=== PATIENT | female | born 1960 | race African-American/Black ===

== ENCOUNTER 2025-01-07 09:09 | Observation (INO) | payer OTHER, MEDICAID ==
[~2025-01-07] VITALS: Ht 160 cm; Wt 103.4 kg
[2025-01-07] VITALS (8 sets, daily range): BP systolic 123–146; BP diastolic 45–75; PULSE 81–88; RESP 12–20; TEMP 97.9–98.7; O2SAT 95–99
[~2025-01-07 09:09] MED LIST: ATEN-60 PO; IPRA0.064; PRO25I IM
--- NOTE | 2025-01-07 10:35 | ED.PDOC ---
History of Present Illness HPI Comments 64-year-old female presents to the ER in a wheelchair being pushed by daughter and with prior medical history of sciatica, hypertension: Surgical history of CABG and the chief complaint of shortness a breath. Patient reports on having shortness a breath upon ambulation associated with right hip pain which radiates down to the right lower extremity(foot numbness at this time) and dark black bowel movements. Denies any other symptoms at this time. Denies chills, fever, N/V/D, CP. No other associated symptoms, modifiers, recent injuries or sick contacts present at this time. Chief Complaint: Shortness of Breath Time Seen by MD: 10:30 Primary Care Provider: UTD Reviewed Notes: Nurses Notes, Medications, Allergies Allergies: Coded Allergies: Erythromycin (Verified Allergy, 06/04/13) Home Meds Reported Medications Promethazine Hcl (PHENERGAN INJECTION) 25 Mg/Ml Ij, 25 MG IM 06/04/13 Ipratropium [place] (Atrovent) 0.06 % Rhina, 0.06 % NA 06/04/13 Atenolol (Atenolol) 25 Mg Tab, 25 MG PO, TAB 06/04/13 Information Source: Patient, Relative (Child) Mode of Arrival: Ambulatory Severity: Moderate Timing: Came on: Suddenly Duration: Since onset Prehospital treatment: None Past Medical History PAST MEDICAL HISTORY: HTN Past Medical History (Other): Sciatica Surgical History: CABG PHARMACIST HELPER History: No Pertinent PHARMACIST HELPER History Family History Family History: Reviewed,noncontributory to illness, Unknown Social History Smoker: Unknown Alcohol: Unknown Drugs: Unknown Lives In: Home Constitutional: denies: chills, diaphoresis, fatigue, fever, malaise, sweats, weakness, others EENTM: denies: blurred vision, double vision, ear bleeding, ear discharge, ear drainage, ear pain, ear ringing, eye pain, eye redness, hearing loss, mouth pain, mouth swelling, nasal discharge, nose bleeding, nose congestion, nose pain, photophobia, tearing, throat pain, throat swelling, voice changes, others Respiratory: reports: shortness of breath; denies: cough, hemoptysis, orthopnea, SOB at rest, SOB with excertion, stridor, wheezing, others Cardiovascular: denies: chest pain, dizzy spells, diaphoresis, Dyspnea on exertion, edema, irregular heart beat, left arm pain, lightheadedness, palpitations, PND, syncope, others Gastrointestinal: reports: others (Dark stool); denies: abdomen distended, abdominal pain, blood streaked bowels, constipated, diarrhea, dysphagia, difficulty swallowing, hematemesis, melena, nausea, poor appetite, poor fluid intake, rectal bleeding, rectal pain, vomiting Genitourinary: denies: abnormal vagina bleeding, burning, dyspareunia, dysuria, flank pain, frequency, hematuria, incontinence, pain, , vagina discharge, urgency, others Neurological: denies: dizziness, fainting, headache, left sided numbness, left sided weakness, numbness, paresthesia, pre-existing deficit, right sided numbness, right sided weakness, seizure, speech problems, tingling, tremors, weakness, others Musculoskeletal: reports: others (In which radiates down the right lower e xtremity); denies: back pain, gout, joint pain, joint swelling, muscle pain, muscle stiffness, neck pain Integumetry: denies: bruises, change in color, change in hair/nails, dryness, laceration, lesions, lumps, rash, wounds, others Allergic/Immunocompromised: denies: Difficulty Healing, Frequent Infections, Hives, Itching, others Hematologic/Lymphatic: denies: anemia, blood clots, easy bleeding, easy bruising, swollen glands, others Endocrine: denies: excessive hunger, excessive sweating, excessive thirst, excessive urination, flushing, intolerance to cold, intolerance to heat, unexplained weight gain, unexplained weight loss, others Psychiatric: denies: anxiety, bipolar disorder, depression, hopeless, panic disorder, schizophrenia, sleepless, suicidal, others All Other Systems: Reviewed and Negative Physical Exam General Appearance: Moderate Distress, Normal HEENT: Normal ENT Inspection, Pharynx Normal, TMs Normal Neck: Full Range of Motion, Non-Tender, Normal, Normal Inspection Respiratory: Chest Non-Tender, No Accessory Muscle Use, Other (Coarse breath sounds) Cardiovascular: No Edema, No JVD, No Murmur, No Gallop, Normal Peripheral Pulses, Regular Rate/Rhythm Breast Exam: Deferred Gastrointestinal: No Organomegaly, Non Tender, No Pulsatile Mass, Normal Bowel Sounds, Soft Genitalia: Deferred Pelvic: Deferred Rectal: Deferred Extremities: No calf tenderness, Normal capillary refill, Normal inspection, Normal range of motion, Non-tender, No pedal edema Musculoskeletal : Apperance: Normal Neurologic: Alert, chief jailer II-XII nml as Tested, No Motor Deficits, Normal Affect, Normal Mood, No Sensory Deficits Cerebellar Function: NOT DONE Reflexes: NOT DONE Skin: Dry, Normal Color, Warm Peripheral Pulses: 3+ Radial (R), 3+ Radial (L) Lymphatic: No Adenopathy Was a procedure done? Was a procedure done?: No Differential Dx Considerations may include: CHF Electrolyte imbalance X-Ray, Labs, Meds, VS Vital Signs Date Time Temp Pulse Resp B/P (MAP) Pulse Ox O2 Delivery O2 Flow Rate FiO2 01/07/25 10:23 91 17 100 Room Air 01/07/25 10:23 98.7 91 17 139/62 (87) 100 98.7 01/07/25 09:11 97.3 110 20 151/69 98 97.3 Lab Test 01/07/25 10:40 Range/Units White Blood Count 9.3 4.4-10.8 10^3/uL Red Blood Count 2.92 L 4.0-5.20 10^6/uL Hemoglobin 7.0 *L 12.2-16.2 g/dL Hematocrit 22.8 L 36.0-46.0 % Mean Corpuscular Volume 77.9 L 80.0-100.0 fL Mean Corpuscular Hemoglobin 23.9 L 28.0-32.0 pg Mean Corpuscular Hemoglobin Concent 30.7 L 32.0-36.0 g/dL Red Cell Distribution Width 18.0 H 11.8-14.3 % Platelet Count 454 H 140-450 10^3/uL Mean Platelet Volume 7.9 6.9-10.8 fL Neutrophils (%) (Auto) 75.2 37.0-80.0 % Lymphocytes (%) (Auto) 14.4 10.0-50.0 % Monocytes (%) (Auto) 4.7 0.0-12.0 % Eosinophils (%) (Auto) 5.1 0.0-7.0 % Basophils (%) (Auto) 0.6 0.0-2.0 % Neutrophils # (Auto) 7.0 1.6-8.6 10 ^3/uL Lymphocytes # (Auto) 1.3 0.4-5.4 10 ^3/uL Monocytes # (Auto) 0.4 0-1.3 10 ^3/uL Eosinophils # (Auto) 0.5 0-0.8 10 ^3/uL Basophils # (Auto) 0.1 0-0.2 10 ^3/uL Nucleated Red Blood Cells 0.1 % Sodium Level 140 136-145 mmol/L Potassium Level 3.6 3.5-5.1 mmol/L Chloride Level 106 98-107 mmol/L Carbon Dioxide Level 26 20-31 mmol/L Anion Gap 8 5-15 Blood Urea Nitrogen 18 9-23 mg/dL Creatinine 0.71 0.550-1.02 mg/dL Glomerular Filtration Rate Calc 94 >90 mL/min BUN/Creatinine Ratio 25.4 H 10.0-20.0 Serum Glucose 88 74-106 mg/dL Calcium Level 9.1 8.7-10.4 mg/dL Troponin I High Sensitivity 44 *H </=34 ng/L B-Type Natriuretic Peptide 90.89 0-100 pg/mL Patient alert. Complaining of shortness a breath. She also has right hip pain. Vitals stable. No leg swelling. Blood pressure slightly elevated. History of coronary artery bypass graft. Saturation pristine on room air. She continues to state that she has been having shortness a breath. Echocardiogram. Cardiology consultation. Cardiac marker elevated. Hemoglobin is low. Explained to the patient. Continue to monitor. Time of 1ST Reevaluation: 11:00 Reevaluation 1ST: Unchanged Patient Education/Counseling: Diagnosis, Treatment, Prognosis Family Education/Counseling: No Family Present SEPSIS Sepsis Screen Date sepsis recognized/suspect: Jan 07, 2025 Time Sepsis recognized/suspect: 910 Recent Procedure: No On Antibiotic Therapy: No Respiratory Rate >20: No Heart Rate >90: Yes Temp<36 C (96.8 F) or >38.3 C: No SBP <90 or MAP <65 mmHG: No New Acute Mental Status Change: No Is the patient on CPAP, BIPAP,: No Physician Orders Chest Portable (01/07/25 10:09) Urinalysis (01/07/25 10:09) Troponin-I Hs (01/07/25 11:09) Troponin-I Hs (01/07/25 13:09) Vital Signs Date Time Temp Pulse Resp B/P (MAP) Pulse Ox O2 Delivery O2 Flow Rate FiO2 01/07/25 10:23 91 17 100 Room Air 01/07/25 10:23 98.7 91 17 139/62 (87) 100 98.7 01/07/25 09:11 97.3 110 20 151/69 98 97.3 Laboratory Tests Test 01/07/25 10:40 White Blood Count 9.3 10^3/uL (4.4-10.8) Departure 1 Departure Time of Disposition: 11:11 Impression: Primary Impression: CHF (congestive heart failure) Qualified Codes: I50.43 - Acute on chronic combined systolic (congestive) and diastolic (congestive) heart failure Additional Impressions: Osteoarthritis Qualified Codes: M16.11 - Unilateral primary osteoarthritis, right hip Demand ischemia Severe anemia Disposition: ADMITTED INPATIENT Admit to: Med Surg Condition: Guarded Critical Care Note Critical Care Time?: Yes (90 min-critical care time only) Stability Stability form required: No Heart Score Heart Score: Heart Score Response (Comments) Value History Slightly Suspicious 0 EKG Normal 0 Age >65 2 Risk Factors >3 or Hx ASHD 2 Troponin 1-2 x's Normal limit 1 Total 5 I personally scribed for ISMAEL LEIVA MD ([email or web address]) on 01/07/25 at 10:35. Electronically submitted by Marquis Eid ([email or web address]). ISMAEL LEIVA MD Jan 07, 2025 10:35
--- NOTE | 2025-01-07 11:02 | DVH ---
XY CHEST PORTABLE, HISTORY: sob COMPARISON: None None TECHNICAL DATA: 1 view of the chest was obtained. FINDINGS: Lines and tubes: None Cardiomediastinal silhouette: normal Pulmonary vasculature: normal Lung expansion: normal Lung airspace: normal Lung interstitium: normal Pleura: normal Pneumothorax: no Bones: Unremarkable Other: no IMPRESSION: No acute intrathoracic abnormality.
[2025-01-07 11:12] LABS: Hematocrit 22.8 % (36.0-46.0); Hemoglobin 7.0 g/dL (12.2-16.2); Mean Corpuscular Hemoglobin 23.9 pg (28.0-32.0); Mean Corpuscular Volume 77.9 fL (80.0-100.0); Nucleated Red Blood Cells % 0.1 %
[2025-01-07 11:18] LABS: Chloride 106 mmol/L (98-107); Potassium 3.6 mmol/L (3.5-5.1); Sodium 140 mmol/L (136-145)
[2025-01-07 11:19] LABS: Anion Gap 8 (5-15); Carbon Dioxide 26 mmol/L (20-31)
[2025-01-07 11:20] LABS: Calcium 9.1 mg/dL (8.7-10.4)
[2025-01-07 11:24] LABS: BUN/Creatinine Ratio 25.4 (10.0-20.0); Blood Urea Nitrogen 18 mg/dL (9-23); Glucose 88 mg/dL (74-106)
[2025-01-07] MEDS ORDERED: ONDANSETRON HCL 4 MG/2 ML VIAL IV ONE (14:45)
[2025-01-07] MEDS ORDERED: HYDROmorphone HCL 2 MG/ML VL/or syr IV ONE (14:45)
[2025-01-07] MEDS: ONDANSETRON HCL 4 MG/2 ML VIAL IV ONE (15:07)
[2025-01-07] MEDS: HYDROmorphone HCL 2 MG/ML VL/or syr IV ONE (15:07)
[2025-01-07] MEDS: HYDROMORPHONE HCL 1 MG/ML INJ ONE (15:10)
[2025-01-07] MEDS: ONDANSETRON HCL 4 MG/2 ML VIAL ONE (15:10)
[2025-01-07] MEDS ORDERED: ONDANSETRON HCL 4 MG/2 ML VIAL IV PRN (15:15)
[2025-01-07] MEDS ORDERED: MORPHINE SULFATE INJ 2 MG/ml SYRG IV PRN (15:15)
[2025-01-07] MEDS ORDERED: ALBUTEROL SULF 2.5 MG/0.5ML(0.5%) NEB SOLN NEB PRN (15:15)
[2025-01-07] MEDS ORDERED: NITROGLYCERIN 0.4 MG SL TAB SL PRN (15:15)
[2025-01-07] MEDS: PANTOPRAZOLE 40 MG/10 ML VIAL INJ IV ONE ×3 (15:23→15:31)
[2025-01-07] MEDS: SODIUM CHLORIDE 0.9% 1,000 ML IV SCH (15:38)
[2025-01-07 15:43] LABS: INR 0.99 (0.9-1.15); Prothrombin Time 10.5 sec (9.3-11.8)
[2025-01-07 16:01] LABS: Nucleated Red Blood Cells % 0.1 %
[2025-01-07 16:02] LABS: Hematocrit 21.3 % (36.0-46.0); Mean Corpuscular Hemoglobin 24.1 pg (28.0-32.0); Mean Corpuscular Volume 79.5 fL (80.0-100.0)
[2025-01-07 16:07] LABS: Hemoglobin 6.5 g/dL (12.2-16.2)
--- NOTE | 2025-01-07 19:43 | DVHINCON2 ---
Date of service: Jan 07, [address] Rock Reason for Consultation Melena and symptomatic anemia History of Present Illness 64-year-old female presents to the ER in a wheelchair with chief complaint of shortness a breath. Patient reports on having shortness a breath upon ambul ation associated with right hip pain which radiates down to the right lower extremity and dark black bowel movements. Patient has been taking some NSAIDs and gabapentin recently for her sciatica and suspected gout pain. Patient was diagnosed with severe anemia with a hemoglobin of 6.9 with mild microcytic indices. She has not had any recent endoscopy or colonoscopy. Past Medical History PAST MEDICAL HISTORY: HTN Past Medical History (Other): Sciatica Past Surgical History Surgical History: CABG Allergies: Coded Allergies: Erythromycin (Verified Allergy, Unknown, 01/07/25) Home Meds Reported Medications Promethazine Hcl (PHENERGAN INJECTION) 25 Mg/Ml Ij, 25 MG IM 06/04/13 Ipratropium [place] (Atrovent) 0.06 % Rhina, 0.06 % NA 06/04/13 Atenolol (Atenolol) 25 Mg Tab, 25 MG PO, TAB 06/04/13 Current Medications Current Medications Medications (Trade) Dose Ordered Sig/Elsa Route PRN Reason Start Time Stop Time Status Last Admin Ondansetron HCl (Zofran) 4 mg Q4HPRN PRN IV NAUSEA / VOMITING 01/07/25 15:15 Sodium Chloride 1,000 ml @ 70 mls/hr [id number] IV 01/07/25 15:15 01/07/25 15:38 Nitroglycerin (Ntrostat Sublingual) 0.4 mg Q5MINP PRN SL FOR CHEST PAIN 01/07/25 15:15 Morphine Sulfate 2 mg Q30M PRN IV FOR CHEST PAIN 01/07/25 15:15 Albuterol (Ventolin Medneb) 2.5 mg Q6HPRN PRN NEB SHORTNESS OF BREATH 01/07/25 15:15 Vital Signs Vital Signs Date Time Temp Pulse Resp B/P (MAP) Pulse Ox O2 Delivery O2 Flow Rate FiO2 01/07/25 17:55 97.9 85 17 131/49 97.9 01/07/25 17:30 95 01/07/25 15:50 0.0 21 01/07/25 13:00 Room Air* Physical Exam General Appearance: Mild Distress, awake and alert HEENT: Normal ENT Inspection, Pharynx Normal, TMs Normal Neck: Full Range of Motion, Non-Tender, Normal, Normal Inspection Respiratory: Chest Non-Tender, No Accessory Muscle Use, Other (Coarse breath sounds) Cardiovascular: No Edema, No JVD, No Murmur, No Gallop, Normal Peripheral Pulses, Regular Rate/Rhythm Gastrointestinal: No Organomegaly, Non Tender, No Pulsatile Mass, Normal Bowel Sounds, Soft, obese Extremities: No calf tenderness, Normal capillary refill, Normal inspection, Normal range of motion, Non-tender, No pedal edema Neurologic: Normal Affect, Normal Mood, No Sensory Deficits Labs/Diagnostic Data Labs Test 01/07/25 15:48 01/07/25 14:00 01/07/25 10:40 Range/Units White Blood Count 8.9 4.4-10.8 10^3/uL Red Blood Count 2.68 L 4.0-5.20 10^6/uL Hemoglobin 6.5 *L 12.2-16.2 g/dL Hematocrit 21.3 L 36.0-46.0 % Mean Corpuscular Volume 79.5 L 80.0-100.0 fL Mean Corpuscular Hemoglobin 24.1 L 28.0-32.0 pg Mean Corpuscular Hemoglobin Concent 30.3 L 32.0-36.0 g/dL Red Cell Distribution Width 17.8 H 11.8-14.3 % Platelet Count 408 140-450 10^3/uL Mean Platelet Volume 7.9 6.9-10.8 fL Neutrophils (%) (Auto) 65.8 37.0-80.0 % Lymphocytes (%) (Auto) 20.6 10.0-50.0 % Monocytes (%) (Auto) 6.8 0.0-12.0 % Eosinophils (%) (Auto) 6.1 0.0-7.0 % Basophils (%) (Auto) 0.7 0.0-2.0 % Neutrophils # (Auto) 5.9 1.6-8.6 10 ^3/uL Lymphocytes # (Auto) 1.8 0.4-5.4 10 ^3/uL Monocytes # (Auto) 0.6 0-1.3 10 ^3/uL Eosinophils # (Auto) 0.5 0-0.8 10 ^3/uL Basophils # (Auto) 0.1 0-0.2 10 ^3/uL Nucleated Red Blood Cells 0.1 % Prothrombin Time 10.5 9.3-11.8 sec Prothrombin Time INR 0.99 0.9-1.15 Troponin I High Sensitivity 50 *H </=34 ng/L Sodium Level 140 136-145 mmol/L Potassium Level 3.6 3.5-5.1 mmol/L Chloride Level 106 98-107 mmol/L Carbon Dioxide Level 26 20-31 mmol/L Anion Gap 8 5-15 Blood Urea Nitrogen 18 9-23 mg/dL Creatinine 0.71 0.550-1.02 mg/dL Glomerular Filtration Rate Calc 94 >90 mL/min BUN/Creatinine Ratio 25.4 H 10.0-20.0 Serum Glucose 88 74-106 mg/dL Calcium Level 9.1 8.7-10.4 mg/dL B-Type Natriuretic Peptide 90.89 0-100 pg/mL CXR IMPRESSION: No acute intrathoracic abnormality. Problems(with codes): (1) Melena (2) Osteoarthritis (3) Severe anemia (4) CHF (congestive heart failure) Plan/Recommendation Plan Protonix 40 mg IV q.12 hours Clear liquid diet ; IV iron Patient is being transfused 1 unit PRBC Patient was advised to discontinue aspirin NSAIDs I will schedule him for an endoscopy on 01/08/2025 ; risks and alternatives explained Consider CT scan of the abdomen pelvis if not recently done Outpatient elective colonoscopy once medically stabilized Plan discussed with: Patient, Daughter, Other (Dr Rock) JASWINDER CHEW MD Jan 07, 2025 19:43
[2025-01-07] MEDS: MORPHINE SULFATE INJ 2 MG/ml SYRG IV PRN (22:30)
[2025-01-07] MEDS: PANTOPRAZOLE 40mg/50ML NS AE 50 ML IV ONE (22:38)
[2025-01-07] MEDS: SOD CHL 0.45% 1,000 ML IV SCH (22:46)
--- NOTE | 2025-01-07 23:57 | DVHINCON2 ---
Date of service: Jan 07, 2025 Referring Physician Inga Reason for Consultation Elevated troponin, demand ischemia History of Present Illness This is a 64-year-old female with a PMH of HTN, CAD, Chronic angina, HLD and COPD who presents to the ED in a wheelchair being pushed by daughter with co mplaints of shortness a breath upon ambulation associated with right hip pain which radiates down to the right lower extremity(foot numbness at this time) and dark black bowel movements. Hgb 7 (13), Bun 18, Creatinine 0.71, Trops 44 -> 42 -> 50. Chest x-ray shows no acute pathology. Patient was admitted to the hospital. I am asked to consult on this patient. Allergies: Coded Allergies: Erythromycin (Verified Allergy, Unknown, 01/07/25) Home Meds Reported Medications Promethazine Hcl (PHENERGAN INJECTION) 25 Mg/Ml Ij, 25 MG IM 06/04/13 Ipratropium [place] (Atrovent) 0.06 % Rhina, 0.06 % NA 06/04/13 Atenolol (Atenolol) 25 Mg Tab, 25 MG PO, TAB 06/04/13 Current Medications Current Medications Medications (Trade) Dose Ordered Sig/Elsa Route PRN Reason Start Time Stop Time Status Last Admin Ondansetron HCl (Zofran) 4 mg Q4HPRN PRN IV NAUSEA / VOMITING 01/07/25 15:15 Sodium Chloride 1,000 ml @ 70 mls/hr [id number] IV 01/07/25 15:15 01/07/25 15:38 Nitroglycerin (Ntrostat Sublingual) 0.4 mg Q5MINP PRN SL FOR CHEST PAIN 01/07/25 15:15 Morphine Sulfate 2 mg Q30M PRN IV FOR CHEST PAIN 01/07/25 15:15 Albuterol (Ventolin Medneb) 2.5 mg Q6HPRN PRN NEB SHORTNESS OF BREATH 01/07/25 15:15 Review of Systems Constitutional: denies: chills, diaphoresis, fatigue, fever, malaise, sweats, weakness, others EENTM: denies: blurred vision, double vision, ear bleeding, ear discharge, ear drainage, ear pain, ear ringing, eye pain, eye redness, hearing loss, mouth pain, mouth swelling, nasal discharge, nose bleeding, nose congestion, nose pain, photophobia, tearing, throat pain, throat swelling, voice changes, others Respiratory: reports: shortness of breath; denies: cough, hemoptysis, orthopnea, SOB at rest, SOB with excertion, stridor, wheezing, others Cardiovascular: denies: chest pain, dizzy spells, diaphoresis, Dyspnea on ex ertion, edema, irregular heart beat, left arm pain, lightheadedness, palpitations, PND, syncope, others Gastrointestinal: reports: others (Dark stool); denies: abdomen distended, abdominal pain, blood streaked bowels, constipated, diarrhea, dysphagia, difficulty swallowing, hematemesis, melena, nausea, poor appetite, poor fluid intake, rectal bleeding, rectal pain, vomiting Genitourinary: denies: abnormal vagina bleeding, burning, dyspareunia, dysuria, flank pain, frequency, hematuria, incontinence, pain, , vagina discharge, urgency, others Neurological: denies: dizziness, fainting, headache, left sided numbness, left sided weakness, numbness, paresthesia, pre-existing deficit, right sided numbness, right sided weakness, seizure, speech problems, tingling, tremors, weakness, others Musculoskeletal: reports: others (In which radiates down the right lower extremity); denies: back pain, gout, joint pain, joint swelling, muscle pain, muscle stiffness, neck pain Integumetry: denies: bruises, change in color, change in hair/nails, dryness, laceration, lesions, lumps, rash, wounds, others Allergic/Immunocompromised: denies: Difficulty Healing, Frequent Infections, Hives, Itching, others Hematologic/Lymphatic: denies: anemia, blood clots, easy bleeding, easy bruising, swollen glands, others Endocrine: denies: excessive hunger, excessive sweating, excessive thirst, excessive urination, flushing, intolerance to cold, intolerance to heat, unexplained weight gain, unexplained weight loss, others Psychiatric: denies: anxiety, bipolar disorder, depression, hopeless, panic disorder, schizophrenia, sleepless, suicidal, others All Other Systems: Reviewed and Negative Vital Signs Vital Signs Date Time Temp Pulse Resp B/P (MAP) Pulse Ox O2 Delivery O2 Flow Rate FiO2 01/07/25 17:55 97.9 85 17 131/49 97.9 10/28/25 17:30 95 01/07/25 15:50 0.0 21 01/07/25 13:00 Room Air* Physical Exam GENERAL: Alert and oriented x 3. No acute distress. EYES: PERRL, EOMI. Anicteric. HENT: Moist mucous membranes. LUNGS: Clear to auscultation bilaterally. CARDIOVASCULAR: Regular rate and rhythm. ABDOMEN: Soft, nontender and nondistended. EXTREMITIES: No edema. NEUROLOGIC: No focal neurological deficits. SKIN: Warm, dry. Labs/Diagnostic Data Labs Test 01/07/25 15:48 01/07/25 14:00 01/07/25 10:40 Range/Units White Blood Count 8.9 4.4-10.8 10^3/uL Red Blood Count 2.68 L 4.0-5.20 10^6/uL Hemoglobin 6.5 *L 12.2-16.2 g/dL Hematocrit 21.3 L 36.0-46.0 % Mean Corpuscular Volume 79.5 L 80.0-100.0 fL Mean Corpuscular Hemoglobin 24.1 L 28.0-32.0 pg Mean Corpuscular Hemoglobin Concent 30.3 L 32.0-36.0 g/dL Red Cell Distribution Width 17.8 H 11.8-14.3 % Platelet Count 408 140-450 10^3/uL Mean Platelet Volume 7.9 6.9-10.8 fL Neutrophils (%) (Auto) 65.8 37.0-80.0 % Lymphocytes (%) (Auto) 20.6 10.0-50.0 % Monocytes (%) (Auto) 6.8 0.0-12.0 % Eosinophils (%) (Auto) 6.1 0.0-7.0 % Basophils (%) (Auto) 0.7 0.0-2.0 % Neutrophils # (Auto) 5.9 1.6-8.6 10 ^3/uL Lymphocytes # (Auto) 1.8 0.4-5.4 10 ^3/uL Monocytes # (Auto) 0.6 0-1.3 10 ^3/uL Eosinophils # (Auto) 0.5 0-0.8 10 ^3/uL Basophils # (Auto) 0.1 0-0.2 10 ^3/uL Nucleated Red Blood Cells 0.1 % Prothrombin Time 10.5 9.3-11.8 sec Prothrombin Time INR 0.99 0.9-1.15 Troponin I High Sensitivity 50 *H </=34 ng/L Sodium Level 140 136-145 mmol/L Potassium Level 3.6 3.5-5.1 mmol/L Chloride Level 106 98-107 mmol/L Carbon Dioxide Level 26 20-31 mmol/L Anion Gap 8 5-15 Blood Urea Nitrogen 18 9-23 mg/dL Creatinine 0.71 0.550-1.02 mg/dL Glomerular Filtration Rate Calc 94 >90 mL/min BUN/Creatinine Ratio 25.4 H 10.0-20.0 Serum Glucose 88 74-106 mg/dL Calcium Level 9.1 8.7-10.4 mg/dL B-Type Natriuretic Peptide 90.89 0-100 pg/mL Assessment Acute GI bleeding. Symptomatic anemia. Elevated troponin due to demand related ischemia. Plan/Recommendation I agree with your ongoing assessment and care of plan. Telemetry reviewed. Morphine for pain management. Nitro SL. GI prophylactics. Additional plan as per the hospital course. A total of 45 minutes was spent reviewing the patient record, examining the patient, making a diagnostic and therapeutic plan, discussing this plan with medical personnel, following up on diagnostic studies and following the patient for clinical stability excluding any and all procedures. At least 50% of this time was spent in direct, [id number] contact. Plan discussed with: Patient SURESH BRISCOE MD Jan 07, 2025 19:15
[2025-01-08] VITALS (16 sets, daily range): BP systolic 110–152; BP diastolic 44–80; PULSE 72–102; RESP 12–18; TEMP 98.1–99.1; O2SAT 95–100
[2025-01-08 00:37] LABS: Hemoglobin 8.2 g/dL (12.2-16.2)
[2025-01-08 00:39] LABS: Hematocrit 27.2 % (36.0-46.0); Mean Corpuscular Hemoglobin 24.6 pg (28.0-32.0); Mean Corpuscular Volume 81.7 fL (80.0-100.0); Nucleated Red Blood Cells % 0.0 %
--- NOTE | 2025-01-08 02:34 | DVHHP ---
ADMIT DATE: 01/07/2025 CHIEF COMPLAINT: Coming in for shortness of breath and right-sided sciatica. HISTORY OF PRESENT ILLNESS: This is a 64-year-old female with significant past medical history for neuropathy, essential hypertension, prediabetes, and right-sided sciatica as well as gout who presents to the Emergency Room with complaints of shortness of breath as well as right-sided sciatica pain. The patient apparently has been struggling with sciatica pain for about a month now. She apparently, about 2 weeks ago, was taking ibuprofen 800 mg once a day for 4 days, noted that she had had some black stools at the time and that kind of resolved on its own once she stopped taking the NSAIDs. The patient again started taking colchicine apparently yesterday, noticed that she had another bout of black stools and again this morning. She did take colchicine today 1 tablet as she was started by her primary care provider for acute gout attack. The patient says apart from that, she has not been taking any other NSAIDs that she is aware of. She has never had any GI bleeding issues in the past. She has noticed again that she has shortness of breath with minimal exertion, but no dizziness, felt like maybe some fluttering in her chest in the last year or two. She denies any chest pain. The patient denies any fevers or chills, any cough, any phlegm, any orthopnea, any urinary frequency, urgency, or burning sensation symptoms. She does have a history of coronary artery disease with one-vessel CABG completed in 2023. The patient has not had any history of any exertional cardiac symptoms recently. PAST MEDICAL HISTORY: Coronary artery disease, right-sided sciatica, neuropathy, essential hypertension, prediabetes and gout. PAST SURGICAL HISTORY: Coronary artery bypass surgery one-vessel in 08/2023, partial hysterectomy. SOCIAL HISTORY: She says she smokes mini cigars, about four cigarettes a day. She has been a smoker for 40 years. She says she occasionally drinks about two times a month. No illicit drugs. MEDICATIONS AT HOME: Per medical reconciliation. MEDICATION ALLERGIES: ERYTHROMYCIN. REVIEW OF SYSTEMS: A 10-point review of systems was covered with the patient and was negative with the exception to what was present in history of present illness. PHYSICAL EXAMINATION: VITAL SIGNS: Temperature 97.3, pulse rate of 110, respiratory rate 20, blood pressure 151/69, pulse ox about 99% on room air. GENERAL: Seems to be alert and oriented x 4, in no acute distress female, lying in bed. HEENT: Normocephalic, atraumatic. Extraocular muscles intact. Pupils are equally round and reactive to light and accommodations. Mucous membranes look moist. CARDIOVASCULAR: S1, S2 positive. Regular rate and rhythm. No rubs, gallops or murmurs. LUNGS: Seems to be clear to auscultation bilaterally. No wheezing, rhonchi or rales. ABDOMEN: Seems to be soft, nontender, nondistended. Positive bowel sounds. No guarding, no rebound. EXTREMITIES: Lower extremities; without lower extremity edema, clubbing, or cyanosis NEUROLOGIC: No focal deficits on examination. Cranial nerve testing 2-12 overall seems to be intact. LABORATORY WORKUP: Shows white count of 9.3, H and H of 7/22.8, platelet count of 458,000. INR of 0.99. Sodium of 140, potassium of 3.6, chloride 106, carbon dioxide of 26, anion gap of 8, BUN of 18, creatinine 0.71, serum glucose of 88, calcium 9.1. Troponins of 44, 42 and 50. BNP of 90.89. IMAGING: Chest x-ray shows no acute intrathoracic abnormality. DIAGNOSES: * Acute GI bleeding. * Acute blood loss anemia. * Demand-related ischemia SECONDARY DIAGNOSES: * Essential hypertension. * Right-sided sciatica. PLAN: The patient will be admitted to the medical telemetry floor under observation status for continuous cardiopulmonary monitoring. Consultation with ELIZABETH Goff has been requested. The patient already seen by GI by bedside and has been arranged for EGD for tomorrow. The patient will be maintained NPO at this point in time. The patient has been typed and crossed. The patient has been ordered 2 units of blood to be transfused. The patient has been given 80 mg of Protonix IV x 1, followed by a drip at 8 mg per hour. The patient is to have Zofran 4 mg IV p.r.n. q. 4 hours for nausea and vomiting and we will give Dilaudid 0.2 mg p.r.n. q. 6 hours as needed for moderate to severe pain. The patient has been initiated on IV fluid hydration with normal saline at 70 mL an hour continuously. The patient did have some mildly elevated cardiac enzymes, seems to be demand-related ischemia secondary to her current anemia status. Despite this minimal ____ the patient will also have a consultation with Dr. Matheus Jaimes, Cardiology. The patient has no cardiac symptoms at this point in time to ____ believed to be induced due to her significant anemia. The patient's typically baseline hemoglobin is around 12.5-13 and currently again at 7. A cardiology consultation has been also requested for the patient to be seen by Dr. Matheus Jaimes. The patient otherwise is a full-code. SCDs to the lower extremities for DVT prophylaxis. Further recommendations will depend on the patient's hospital progression. Jaylen Tariq MD LM/OSCAR/ALEX TID: [id number] RECEIPT: [id number] MTDD
[2025-01-08 03:11] LABS: Hemoglobin 7.4 g/dL (12.2-16.2); Nucleated Red Blood Cells % 0.1 %
[2025-01-08 03:13] LABS: Hematocrit 24.6 % (36.0-46.0); Mean Corpuscular Hemoglobin 25.0 pg (28.0-32.0); Mean Corpuscular Volume 83.0 fL (80.0-100.0)
[2025-01-08 03:23] LABS: Potassium 3.5 mmol/L (3.5-5.1); Sodium 140 mmol/L (136-145)
[2025-01-08 03:24] LABS: Anion Gap 4 (5-15); Carbon Dioxide 26 mmol/L (20-31)
[2025-01-08 03:29] LABS: BUN/Creatinine Ratio 17.6 (10.0-20.0); Blood Urea Nitrogen 12 mg/dL (9-23); Glucose 90 mg/dL (74-106)
[2025-01-08 03:48] LABS: Calcium 8.6 mg/dL (8.7-10.4); Chloride 110 mmol/L (98-107)
[2025-01-08 05:37] LABS: Urine Protein, UAD TRACE (Negative); Urine WBC Clumps PRESENT /hpf (None Seen)
--- NOTE | 2025-01-08 05:57 | ECG ---
[facility] Test Date: 2025-01-08 Test Time: 05:55:47 Pat Name: ALEXANDRA FORREST Department: Respiratoy Room: 0249T A Gender: F Resource Engineer: RICH : 1960 Requested By: BRYCE FABIAN Order Number: [id number] Reading MD: Measurements Intervals [place] Rate: 78 P: 54 CA: 161 QRS: 0 QRSD: 116 T: 71 QT: 404 QTc: 461 Interpretive Statements Sinus rhythm Probable left atrial enlargement Left ventricular hypertrophy Anterior ST elevation, probably due to LVH Baseline wander in lead(s) V4 Please click the below link to view image of tracing.
[2025-01-08 09:12] LABS: INR 0.98 (0.9-1.15); Partial Thromboplastin Time 24.8 SEC (24.5-34.5); Prothrombin Time 10.4 sec (9.3-11.8)
[2025-01-08] MEDS: IRON SUCROSE COMPLEX 110 ML IV SCH (12:00)
[2025-01-08] MEDS ORDERED: GLYCOPYRROLATE 0.2 MG/ML 1ML VIAL ONE (12:31)
[2025-01-08] MEDS ORDERED: fentaNYL CITRATE 100 MCG/2 ML VL ONE (12:31)
[2025-01-08] MEDS ORDERED: LIDOCAINE 2% (LOCAL ANESTH.) PF 5ml SDV ONE (12:31)
[2025-01-08] MEDS ORDERED: PROPOFOL 10 MG/ML 20 ML IV ONE (12:31)
[2025-01-08] MEDS ORDERED: ONDANSETRON HCL 4 MG/2 ML VIAL ONE (12:31)
[2025-01-08] MEDS ORDERED: MIDAZOLAM HCL 2MG/2ML 2ml VIAL (1mg/ml) ONE (12:31)
--- NOTE | 2025-01-08 13:09 | DVHOP2 ---
Operative Report DATE OF OPERATION: 01/08/25 PROCEDURE: Upper Endoscopy with biopsy. PREOPERATIVE INDICATION: The patient is a 64 -year-old female undergoing endoscopy for melena and anemia POSTOPERATIVE DIAGNOSES: 1. Mild candidal esophagitis 2. Mild gastroduodenitis with erosions 3. There were two subcentimeter pre-pyloric antral gastric ulcers Jim classification C with no visible vessel and active bleeding 4. Otherwise normal examination up to the 2nd and 3rd part of the duodenum with good bile drainage and no active bleeding PROCEDURE PERFORMED BY: Jaswinder Hanson GI NURSE: Clif SCOPE: Olympus videoendoscope. ASA CLASS: 3 PREOPERATIVE MEDICATIONS: Mac anh, Dr. Dukes PROCEDURE IN DETAIL: After obtaining an informed consent, the patient was placed on left lateral decubitus position. The patient was then sedated with the above medications. A bite block was placed between her teeth. The endoscope was then passed through the oropharynx, into the esophagus, and through the stomach and pylorus up to the second and third part of the duodenum. The endoscope was then withdrawn. The 2nd and 3rd part of the duodenal and the duodenal bulb showed mild duodenitis with a couple of superficial erosions The pre-pyloric area antrum and body showed mild gastritis with gastric erosi ons. There were two pre-pyloric antral gastric ulcers These were 5-6 mm in size Jim classification C with no visible vessel or active bleeding. There was mild edema surrounding these ulcers Gastric biopsies were obtained. There was no fresh or old blood in the upper GI tract. On retroflexion the fundus and cardia were normal. The endoscope was then withdrawn into distal esophagus patient had a slightly irregular squamocolumnar junction. There were some whitish yellowish patches suspicious for candidal esophagitis from which biopsies were obtained The patient tolerated the procedure well without difficulty. COMPLICATIONS : None SPECIMENS: Duodenal biopsies Gastric biopsies Esophageal biopsies DISPOSITION: Transfer back to the floor Stable PLAN: 1. Await for biopsy result 2. Will place pt on Protonix 40 mg bid IV 3. Start full liquid diet advance as tolerated 4. Carafate suspension 1 g p.o. 4 times a day 5. Nystatin swish and swallow 5 mL p.o. three times a day for 10 days 6. Outpatient follow up with GI Services to discuss elective colonoscopy JASWINDER HANSON MD Jan 08, 2025 13:09
[2025-01-08 14:08] LABS: Hematocrit 23.7 % (36.0-46.0); Hemoglobin 7.2 g/dL (12.2-16.2)
[2025-01-08] MEDS ORDERED: PANT40TA2 PO (15:50)
[2025-01-08] MEDS ORDERED: SUCR1SUS26 PO (15:50)
[2025-01-08] MEDS ORDERED: LEVO250T58 PO (15:50)
[2025-01-08] MEDS ORDERED: NYS5LQ MT (16:06)
--- NOTE | 2025-01-08 16:22 | DVHDS2 ---
Discharge Summary Date of Admission Jan 07, 2025 at 15:06 Date of Discharge: Jan 08, 2025 Admitting Diagnosis Acute GI Bleeding Wounds: None Labs/Diagnostic Data: Laboratory Results Test 01/08/25 13:50 01/08/25 08:33 01/08/25 02:52 01/07/25 14:00 Hemoglobin 7.2 g/dL (12.2-16.2) Hematocrit 23.7 % (36.0-46.0) Prothrombin Time 10.4 sec (9.3-11.8) Prothrombin Time INR 0.98 (0.9-1.15) Activated Partial Thromboplast Time 24.8 SEC (24.5-34.5) White Blood Count 7.7 10^3/uL (4.4-10.8) Red Blood Count 2.97 10^6/uL (4.0-5.20) Mean Corpuscular Volume 83.0 fL (80.0-100.0) Mean Corpuscular Hemoglobin 25.0 pg (28.0-32.0) Mean Corpuscular Hemoglobin Concent 30.2 g/dL (32.0-36.0) Red Cell Distribution Width 17.6 % (11.8-14.3) Platelet Count 348 10^3/uL (140-450) Mean Platelet Volume 8.1 fL (6.9-10.8) Neutrophils (%) (Auto) 69.3 % (37.0-80.0) Lymphocytes (%) (Auto) 16.0 % (10.0-50.0) Monocytes (%) (Auto) 7.5 % (0.0-12.0) Eosinophils (%) (Auto) 6.5 % (0.0-7.0) Basophils (%) (Auto) 0.7 % (0.0-2.0) Neutrophils # (Auto) 5.3 10 ^3/uL (1.6-8.6) Lymphocytes # (Auto) 1.2 10 ^3/uL (0.4-5.4) Monocytes # (Auto) 0.6 10 ^3/uL (0-1.3) Eosinophils # (Auto) 0.5 10 ^3/uL (0-0.8) Basophils # (Auto) 0.1 10 ^3/uL (0-0.2) Nucleated Red Blood Cells 0.1 % Sodium Level 140 mmol/L (136-145) Potassium Level 3.5 mmol/L (3.5-5.1) Chloride Level 110 mmol/L (98-107) Carbon Dioxide Level 26 mmol/L (20-31) Anion Gap 4 (5-15) Blood Urea Nitrogen 12 mg/dL (9-23) Creatinine 0.68 mg/dL (0.550-1.02) Glomerular Filtration Rate Calc 96 mL/min (>90) BUN/Creatinine Ratio 17.6 (10.0-20.0) Serum Glucose 90 mg/dL (74-106) Calcium Level 8.6 mg/dL (8.7-10.4) Troponin I High Sensitivity 50 ng/L (</=34) Test 01/07/25 10:40 01/07/25 05:10 B-Type Natriuretic Peptide 90.89 pg/mL (0-100) Urine Color Light-yellow (Yellow) Urine Clarity Turbid (Clear) Urine pH 5.5 (5.0-9.0) Urine Specific [place] 1.019 (1.001-1.035) Urine Protein Trace (Negative) Urine Ketones Negative (Negative) Urine Blood 1+ /uL (Negative) Urine Nitrite 2+ (Negative) Urine Bilirubin Negative (Negative) Urine Urobilinogen Normal mg/dL (Negative) Urine Leukocyte Esterase 3+ /uL (Negative) Urine RBC 27 /hpf (0 - 4) Urine WBC Clumps Present /hpf (None Seen) Urine Microscopic WBC 462 /HPF (0-5) Urine Squamous Epithelial Cells Few /hpf (<5) Urine Bacteria Many /hpf (None Seen) Urine Glucose Normal mg/dL (Normal) Other Laboratory Tests 01/08/25 13:50 01/08/25 02:52 Brief Hx & Hospital Course: This is a 64 YO female with history of Gout, Right Sided Sciatica, and Essential Hypertension who presents to the ER after having right sided sciatica, dyspnea, and black stools x 2 days. Patient apparently had blacks stools 2 weeks ago when she was taking Motrin 800mg daily for sciatica pain and decided to stop after having black stools. She started back having black stool a day prior to admission and having difficulty with short distance walking do to shortness of breath. Patient was found to have anemia with HgB of 7 and typically has Hgb of 12-13mg/dL. Patient was typed and crossed and was ordered 2 units of PRBC to be transfused. Patient had EGD with Dr. Hanson and found to have small non bleeding ulcers in the prepyloric region with gastritis as well as mild candidal esophagitis. Patient had biopsies completed that are pending. Patient per GI should be placed on PPI twice a day, Carafate 1mg QID, and Nystatin 5mL orally TID for 10 days. Patient from GI perspective is cleared to follow up in outpatient basis for biopsy results and repeat future EGD for resolution of her ulcers. Patient also had mild elevation in her troponin's and has know history of 1V BIPAS. Patient was seen by cardiology and cleared for EGD and diagnosed with demand related ischemia secondary to her symptomatic anemia. Patient finally was found to have a UTI and was initiated on IV Rocephin in the hospital and will be discharged home on Levaquin 250mg PO daily for 7 days. Consults/Reason for consult GI Consult, Upper GI Bleeding Cardiology Consult, Dr. Misael Jaimes, Elevated Troponins, cardiac clearance for EGD Operations or Procedures EGD: Showing Peptic Ulcer Disease, gastritis, and esophageal angelica infection Condition at Discharge: Stable Final Diagnosis/Problems List Peptic Ulcer Disease, Esophageal Candidal Infection, Acute blood loss anemia, Demand Related Ischemia, uncomplicated UTI Secondary Diagnosis: Essential HTN Right Sided Sciatica Discharge Disposition: Home Discharge Instruct/Medications Diet: See Comment Diet comment: Full liqiud diet and advance as tolerated. Activity: No Restrictions, As Tolerated Follow Up/Referral: PCP Follow up in 7-10 days GI follow up: Dr. Titi Parker, in 3-4 weeks, follow up biopsy results and repeat EGD. Home safety evaluation to be completed by [facility]. Patient to avoid any non-steroidal antiinflammatory medication to include Motrin, Aleve, Ibuprofin, Naproxen, etc. Medications: Protonix 40 mg PO bid Carafate suspension 1 g p.o. 4 times a day Nystatin swish and swallow 5 mL p.o. three times a day for 10 days Levaquin 250mg 1 tab PO daily for 7 days Scheduled Levofloxacin Hemihydrate (Levofloxacin), 250 MG PO DAILY Nystatin (Mouth-Throat) (Mycostatin (Mouth-Throat)), 5 ML MT TID Pantoprazole Sodium Sesquihydr (Protonix), 40 MG PO BID Sucralfate (Carafate Susp), 1 GM PO QID@0600,1130,1700,2200 Miscellaneous Medications Atenolol (Atenolol), 25 MG PO, (Reported) Ipratropium [place] (Atrovent), 0.06 % NA, (Reported) Promethazine Hcl (Phenergan Injection), 25 MG IM, (Reported) Discharge Statement: "Patient was advised to return to the ER or call 911 if any headaches, dizziness, shortness of breath, chest pain, abdominal pain, bleeding, fevers, or worsening of medical condition. Patient was counseled about treatment plan, medications, possible side effects, patientverbalized understanding. All questions were answered to the best of my ability. This discharge took greater then 30 minutes in planning, reviewing documentation, counseling the patient, and discussing with other team members." ASSESSMENT ASSESSMENT Assessment Peptic Ulcer Disease, Esophageal Candidal Infection, Demand Related Ischemia EPHRAIM CASPER MD Jan 08, 2025 16:22
[2025-01-08] MEDS: SUCRALFATE 1 GM/10 ML ORAL SUSP PO SCH (17:00)
[2025-01-08] MEDS: NYSTATIN (MOUTH-THROAT) 500,000 UNITS/5 ML SUSP MT SCH (17:24)
[2025-01-08 20:32] LABS: Hemoglobin 8.0 g/dL (12.2-16.2)
[2025-01-08 20:34] LABS: Hematocrit 25.7 % (36.0-46.0)
--- NOTE | 2025-01-08 23:59 | DVHPN2 ---
Progress Note - Dictate Date Seen: Jan 08, 2025 Medical Necessity Reason Pt with a Central, PICC or Fol: No Subjective Patient was seen and evaluated in follow up. HGB 7.4, HCT 24.6, CL 110, CA 8.6. Patient received 2 units PRBCs. Patient is planned for an endoscopy by Dr.N Hanson Telemetry reviewed. vital signs Vital Sign Date Time Temp Pulse Resp B/P (MAP) Pulse Ox O2 Delivery O2 Flow Rate FiO2 01/08/25 10:49 100 Nasal Cannula* 2 01/08/25 08:40 98.1 81 18 134/70 (91) 98.1 Total Intake and Output 01/07/25 01/07/25 01/08/25 15:00 23:00 07:00 Intake Total 320 ml 490 ml Balance 320 ml 490 ml medications Current Medications Medications Dose Ordered Sig/Elsa Route Start Time Stop Time Status Last Admin Dose Admin Ondansetron HCl 4 mg Q4HPRN PRN IV 01/07/25 15:15 Nitroglycerin 0.4 mg Q5MINP PRN SL 01/07/25 15:15 Morphine Sulfate 2 mg Q30M PRN IV 01/07/25 15:15 Albuterol 2.5 mg Q6HPRN PRN NEB 01/07/25 15:15 Iron Sucrose 110 ml @ 110 mls/hr DAILY@1200 IV 01/08/25 12:00 01/12/25 12:59 Sodium Chloride 1,000 ml @ 70 mls/hr [id number] IV 01/07/25 22:15 01/07/25 22:46 70 MLS/HR Morphine Sulfate 1 mg Q6HP PRN IV 01/07/25 22:15 01/08/25 05:27 1 MG Ceftriaxone Sodium 50 ml @ 100 mls/hr DAILY@09 IV 01/08/25 09:00 01/08/25 09:05 100 MLS/HR objective GENERAL: Alert and oriented x 3. No acute distress. EYES: PERRL, EOMI. Anicteric. HENT: Moist mucous membranes. LUNGS: Clear to auscultation bilaterally. CARDIOVASCULAR: Regular rate and rhythm. ABDOMEN: Soft, nontender and nondistended. EXTREMITIES: No edema. NEUROLOGIC: No focal neurological deficits. SKIN: Warm, dry. laboratory and microbiology Laboratory Tests 01/08/25 02:52 Test 01/08/25 02:52 Range/Units Serum Glucose 90 74-106 mg/dL Problem List Acute GI bleeding. Symptomatic anemia. Elevated troponin due to demand related ischemia. Assessment/Plan Continued all current supportive medical care. IV antibiotics as ordered. Morphine for pain management. Nitro SL. Additional plan as per the hospital course. Plan discussed with: Patient CC Plasma Assessment Blood Product Administration S: [id number] SURESH BRISCOE MD Jan 08, 2025 12:46
[2025-01-09 01:00] VITALS: BP 115/55; PULSE 102; RESP 18; TEMP 97.8; O2SAT 95
[2025-01-09 05:00] VITALS: BP 109/59; PULSE 86; RESP 18; TEMP 98.9; O2SAT 100
[2025-01-09 08:00] VITALS: PULSE 62; PULSE 79; RESP 16; O2SAT 97
[2025-01-09 08:50] LABS: Hematocrit 24.7 % (36.0-46.0); Hemoglobin 7.7 g/dL (12.2-16.2); Mean Corpuscular Hemoglobin 25.6 pg (28.0-32.0); Mean Corpuscular Volume 81.7 fL (80.0-100.0); Nucleated Red Blood Cells % 0.0 %
[2025-01-09 08:59] LABS: Alanine Aminotransferase 27 U/L (7-40); Albumin 3.7 g/dL (3.2-4.8); Alkaline Phosphatase 85 U/L (46-116); Anion Gap 6 (5-15); BUN/Creatinine Ratio 6.8 (10.0-20.0); Bilirubin, Total 0.4 mg/dL (0.2-1.0); Carbon Dioxide 25 mmol/L (20-31); Chloride 106 mmol/L (98-107); Glucose 81 mg/dL (74-106); Potassium 3.6 mmol/L (3.5-5.1); Sodium 137 mmol/L (136-145); Total Protein 6.2 g/dL (5.7-8.2)
[2025-01-09 09:00] VITALS: BP 126/62; PULSE 72; RESP 17; TEMP 99.4; O2SAT 17
[2025-01-09] MEDS: HYDROcodone-ACET 5/325MG TAB PO ONE (09:02)
[2025-01-09 09:05] LABS: Blood Urea Nitrogen 5 mg/dL (9-23); Calcium 8.4 mg/dL (8.7-10.4)
[2025-01-09 09:26] VITALS: O2SAT 93
[2025-01-09] MEDS ORDERED: SUCR1SUS26 PO (12:02)
[2025-01-10] MEDS ORDERED: LEVO500T91 PO (09:54)
[2025-01-10] MEDS ORDERED: HYDR25TA4 PO (09:54)
[2025-01-10] MEDS ORDERED: COLC1CAP PO (09:54)
[2025-01-10] MEDS ORDERED: GABA-339 PO (09:54)
[2025-01-10] MEDS ORDERED: SEMA2INJ3 SC (09:54)
[2025-01-10] MEDS ORDERED: FURO20TA3 PO (09:54)
[2025-01-10] MEDS ORDERED: ROSU10TA16 PO (09:54)
[2025-01-10] MEDS ORDERED: SEMA4INJ SC (09:54)
[2025-01-10] MEDS ORDERED: ALBUAER3 IN (09:54)
[2025-01-10] MEDS ORDERED: LOSA-534 PO (09:54)
--- NOTE | 2025-01-10 11:06 | DVHPN2 ---
Progress Note - Dictate Date Seen: Jan 09, 2025 Medical Necessity Reason Pt with a Central, PICC or Fol: No Subjective No new complaints Complains of ongoing severe right sciatica pain There was no nausea vomiting or melena Patient is tolerating a diet vital signs Vital Sign Date Time Temp Pulse Resp B/P (MAP) Pulse Ox O2 Delivery O2 Flow Rate FiO2 01/09/25 08:00 62 16 97 Room Air* 0 21 01/09/25 05:00 98.9 109/59 (76) 98.9 Total Intake and Output 01/08/25 01/08/25 01/09/25 15:00 23:00 07:00 Intake Total 75 ml 600 ml 505 ml Balance 75 ml 600 ml 505 ml medications Current Medications Medications Dose Ordered Sig/Elsa Route Start Time Stop Time Status Last Admin Dose Admin Ondansetron HCl 4 mg Q4HPRN PRN IV 01/07/25 15:15 Nitroglycerin 0.4 mg Q5MINP PRN SL 01/07/25 15:15 Morphine Sulfate 2 mg Q30M PRN IV 01/07/25 15:15 Albuterol 2.5 mg Q6HPRN PRN NEB 01/07/25 15:15 Iron Sucrose 110 ml @ 110 mls/hr DAILY@1200 IV 01/08/25 12:00 01/12/25 12:59 Sodium Chloride 1,000 ml @ 70 mls/hr [id number] IV 01/07/25 22:15 01/09/25 02:33 70 MLS/HR Morphine Sulfate 1 mg Q6HP PRN IV 01/07/25 22:15 01/09/25 02:19 1 MG Ceftriaxone Sodium 50 ml @ 100 mls/hr DAILY@09 IV 01/08/25 09:00 01/09/25 08:47 100 MLS/HR Sucralfate 1 gm QID@0600,1130,1700,2200 PO 01/08/25 17:00 01/09/25 06:18 1 GM Nystatin 5 ml QID MT 01/08/25 18:00 01/09/25 06:18 5 ML objective General Appearance: Mild Distress, awake and alert HEENT: Normal ENT Inspection, Pharynx Normal, TMs Normal Neck: Full Range of Motion, Non-Tender, Normal, Normal Inspection Respiratory: Chest Non-Tender, No Accessory Muscle Use, Other (Coarse breath sounds) Cardiovascular: No Edema, No JVD, No Murmur, No Gallop, Normal Peripheral Pulses, Regular Rate/Rhythm Gastrointestinal: No Organomegaly, Non Tender, No Pulsatile Mass, Normal Bowel Sounds, Soft, obese Extremities: No calf tenderness, Normal capillary refill, Normal inspection, Normal range of motion, Non-tender, No pedal edema Neurologic: Normal Affect, Normal Mood, No Sensory Deficits laboratory and microbiology Laboratory Tests 01/09/25 08:07 Test 01/09/25 08:07 Range/Units Serum Glucose 81 74-106 mg/dL Problems(with codes): (1) Sciatica (2) Peptic ulcer (3) Melena (4) Osteoarthritis (5) Demand ischemia Prognosis Plan Protonix plus Carafate Nystatin swish and swallow 5 mL p.o. three times a day Advance diet as tolerated Discharge planning is in progress Pain management referral Plan discussed with: Patient, Other (Nurse) CC Plasma Assessment Blood Product Administration S: 17:40 JASWINDER CHEW MD Jan 09, 2025 10:12
--- NOTE | 2025-01-10 11:30 | DVHPN2 ---
Progress Note - Dictate Date Seen: Jan 09, 2025 Medical Necessity Reason Pt with a Central, PICC or Fol: No Subjective Patient was seen and evaluated in follow up. Patient complains of abdominal pain with black watery stools. HGB 7.7, HCT 24.7, CA 8.4. Telemetry reviewed. vital signs Vital Sign Date Time Temp Pulse Resp B/P (MAP) Pulse Ox O2 Delivery O2 Flow Rate FiO2 01/09/25 09:00 99.4 72 17 126/62 (83) 17 99.4 01/09/25 08:00 Room Air* 0 21 Total Intake and Output 01/08/25 01/08/25 01/09/25 15:00 23:00 07:00 Intake Total 75 ml 600 ml 505 ml Balance 75 ml 600 ml 505 ml medications Current Medications Medications Dose Ordered Sig/Elsa Route Start Time Stop Time Status Last Admin Dose Admin Ondansetron HCl 4 mg Q4HPRN PRN IV 01/07/25 15:15 Nitroglycerin 0.4 mg Q5MINP PRN SL 01/07/25 15:15 Morphine Sulfate 2 mg Q30M PRN IV 01/07/25 15:15 Albuterol 2.5 mg Q6HPRN PRN NEB 01/07/25 15:15 Iron Sucrose 110 ml @ 110 mls/hr DAILY@1200 IV 01/08/25 12:00 01/12/25 12:59 Sodium Chloride 1,000 ml @ 70 mls/hr [id number] IV 01/07/25 22:15 01/09/25 02:33 70 MLS/HR Morphine Sulfate 1 mg Q6HP PRN IV 01/07/25 22:15 01/09/25 02:19 1 MG Ceftriaxone Sodium 50 ml @ 100 mls/hr DAILY@09 IV 01/08/25 09:00 01/09/25 08:47 100 MLS/HR Sucralfate 1 gm QID@0600,1130,1700,2200 PO 01/08/25 17:00 01/09/25 06:18 1 GM Nystatin 5 ml QID MT 01/08/25 18:00 01/09/25 06:18 5 ML objective GENERAL: Alert and oriented x 3. No acute distress. EYES: PERRL, EOMI. Anicteric. HENT: Moist mucous membranes. LUNGS: Clear to auscultation bilaterally. CARDIOVASCULAR: Regular rate and rhythm. ABDOMEN: Soft, nontender and nondistended. EXTREMITIES: No edema. NEUROLOGIC: No focal neurological deficits. SKIN: Warm, dry. laboratory and microbiology Laboratory Tests 01/09/25 08:07 Test 01/09/25 08:07 Range/Units Serum Glucose 81 74-106 mg/dL Problem List Acute GI bleeding. Symptomatic anemia. Elevated troponin due to demand related ischemia. Assessment/Plan Continued all current supportive medical care. IV antibiotics as ordered. Morphine for pain management. Nebulized breathing treatments. Nitro SL. Additional plan as per the hospital course. Plan discussed with: Patient CC Plasma Assessment Blood Product Administration S: 17:40 SURESH BRISCOE MD Jan 09, 2025 11:45
== END 2025-01-09 12:16 | disposition home or self-care (01) ==
LOC: ER 09:09 → OVERFLOW 15:06 → TELE-EAST 20:36
PROVIDERS: ADMIT Hospitalist; ATTEND Hospitalist
DX: K29.70 Gastritis, unspecified, without bleeding (principal); K29.80 Duodenitis without bleeding; K29.90 Gastroduodenitis, unspecified, without bleeding; M54.31 Sciatica, right side; M16.11 Unilateral primary osteoarthritis, right hip; M10.9 Gout, unspecified; K25.4 Chronic or unspecified gastric ulcer with hemorrhage; N39.0 Urinary tract infection, site not specified; I11.0 Hypertensive heart disease with heart failure; I50.43 Acute on chronic combined systolic (congestive) and diastolic (congestive) heart failure; D50.9 Iron deficiency anemia, unspecified; D84.9 Immunodeficiency, unspecified; E78.5 Hyperlipidemia, unspecified; I25.10 Atherosclerotic heart disease of native coronary artery without angina pectoris; F17.200 Nicotine dependence, unspecified, uncomplicated; Z90.711 Acquired absence of uterus with remaining cervical stump; Z95.1 Presence of aortocoronary bypass graft; Z79.899 Other long term (current) drug therapy; Z98.890 Other specified postprocedural states
CPT/HCPCS: 36415; 43239; 71045; 80048; 80053; 81001; 82270; 83880; 84484; 85014; 85018; 85025; 85610; 85730; 86850; 86900; 86901; 86920; 93005; 96365; 96366; 96367; 96375; 96376; 99291; 99292; G0378; J0696; J1171; J1756; J2003; J2250; J2270; J2405; J2470; J2704; J3010; J7030; P9016

== ENCOUNTER 2025-01-10 00:07 | Inpatient (IN) | payer MEDICAID, OTHER ==
[~2025-01-10] VITALS: Ht 162.6 cm; Wt 213.0 kg
[~2025-01-10 00:07] MED LIST changes: +LEVO250T58 PO; +NYS5LQ MT; +PANT40TA2 PO; +SUCR1SUS26 PO
[2025-01-10 03:22] LABS: Hematocrit 32.2 % (36.0-46.0); Hemoglobin 9.8 g/dL (12.2-16.2); Mean Corpuscular Hemoglobin 24.8 pg (28.0-32.0); Mean Corpuscular Volume 82.0 fL (80.0-100.0); Nucleated Red Blood Cells % 0.1 %
[2025-01-10 03:31] LABS: Potassium 3.6 mmol/L (3.5-5.1); Sodium 138 mmol/L (136-145)
[2025-01-10 03:32] LABS: Anion Gap 6 (5-15); Calcium 9.4 mg/dL (8.7-10.4); Carbon Dioxide 24 mmol/L (20-31); Chloride 108 mmol/L (98-107)
[2025-01-10 03:37] LABS: BUN/Creatinine Ratio 10.0 (10.0-20.0); Glucose 104 mg/dL (74-106)
[2025-01-10 03:38] LABS: Blood Urea Nitrogen 7 mg/dL (9-23); Magnesium 2.1 mg/dL (1.6-2.6)
[2025-01-10] MEDS: LABETALOL HCL 20 MG/4 ML VL IV ONE (05:21)
[2025-01-10] MEDS ORDERED: NITROGLYCERIN 0.4 MG SL TAB SL PRN (07:15)
[2025-01-10] MEDS ORDERED: MORPHINE SULFATE INJ 2 MG/ml SYRG IV PRN (07:15)
--- NOTE | 2025-01-10 08:43 | DVH ---
XY CHEST TWO VIEWS ROUTINE CLINICAL HISTORY: elevated troponin COMPARISON: XY CHEST PORTABLE on DOS: 01/07/25 TECHNIQUE: Frontal and lateral view of the chest was obtained FINDINGS: Lines and Tubes: None Lungs: No focal consolidation. Pleura: No effusion. No pneumothorax. Cardiomediastinal contours: Unremarkable Bones: No acute osseous abnormality. IMPRESSION: No acute cardiopulmonary disease.
[2025-01-10 09:00] VITALS: PULSE 86
[2025-01-10 09:04] VITALS: BP 171/88; PULSE 83; RESP 20; TEMP 97.6; O2SAT 98
--- NOTE | 2025-01-10 09:42 | ECG ---
[facility] Test Date: 2025-01-10 Test Time: 09:41:08 Pat Name: ALEXANDRA FORREST Department: Respirat[facility] Room: 0290T A Gender: F Poster: : 1960 Requested By: NIKOLAI FARR Order Number: [id number] Reading MD: Ray Lepe Measurements Intervals [place] Rate: 83 P: 62 [place]: 173 QRS: 0 QRSD: 111 T: 69 QT: 397 QTc: 467 Interpretive Statements Sinus rhythm Probable left atrial enlargement Abnormal R-wave progression, late transition LVH with secondary repolarization abnormality Electronically Signed On 01-14-2025 12:55:17 PST by Ray Lepe Please click the below link to view image of tracing.
[2025-01-10] MEDS ORDERED: LEVO500T91 PO (09:54)
[2025-01-10] MEDS ORDERED: LOSA-534 PO (09:54)
[2025-01-10] MEDS ORDERED: GABA-339 PO (09:54)
[2025-01-10] MEDS ORDERED: SEMA2INJ3 SC (09:54)
[2025-01-10] MEDS ORDERED: ALBUAER3 IN (09:54)
[2025-01-10] MEDS ORDERED: HYDR25TA4 PO (09:54)
[2025-01-10] MEDS ORDERED: ROSU10TA16 PO (09:54)
[2025-01-10] MEDS ORDERED: COLC1CAP PO (09:54)
[2025-01-10] MEDS ORDERED: SEMA4INJ SC (09:54)
[2025-01-10] MEDS ORDERED: FURO20TA3 PO (09:54)
[2025-01-10] MEDS: METOPROLOL TARTRATE 25 MG TAB PO SCH (10:00)
[2025-01-10] MEDS: SOD CHL 0.45% 1,000 ML IV ONE (10:20)
[2025-01-10 10:27] LABS: Triglycerides 128 mg/dL (< 150)
[2025-01-10 10:29] LABS: Cholesterol 125 mg/dL (< 200)
[2025-01-10 10:31] LABS: HDL Cholesterol 39 mg/dL (40-59)
[2025-01-10 10:54] LABS: INR 1.0 (0.9-1.15); Prothrombin Time 10.6 sec (9.3-11.8)
[2025-01-10] MEDS: PANTOPRAZOLE 40 MG TAB PO ONE (11:31)
[2025-01-10] MEDS: hydroCHLOROthiazide 25 MG TAB PO ONE (11:32)
[2025-01-10] MEDS: LOSARTAN POTASSIUM 50 MG TAB PO ONE (11:32)
--- NOTE | 2025-01-10 11:34 | ED.PDOC ---
History of Present Illness HPI Comments 64-year-old female who came to ER for high blood pressure. Patient was just discharged here few hours ago, diagnosed with Peptic Ulcer Disease, Esophageal Candidal Infection, Acute blood loss anemia, Demand Related Ischemia, uncomplicated UTI, Essential HTN, Right Sided Sciatica Patient was sent home with the following home medications, 1. Protonix 40 mg PO bid , 2. Nystatin swish and swallow 5 mL p.o. three times a day for 10 days , 3. Levaquin 250mg 1 tab PO daily for 7 days Patient states she took the said medications before going to sleep, and shortly afterwards he has started having headaches, with bilateral tinnitus, noted blood pressure came SBP >200 so she decided to come to the emergency room REVIEW OF SYSTEMS: General: No fever, no chills, or fatigue HEENT: No sore throat, no earache, no congestion, no neck pain. (+) tinnitus Cardiac: No chest pain. No palpitations. Lungs: No shortness of breath, no cough. GI: No nausea, no vomiting, no diarrhea, no constipation, no abdominal pain : No dysuria, frequency, or urgency. No hematuria. Musculoskeletal: No joint pain , no joint swelling, no extremity edema. Skin: No rash, no itching. Neuro: No headache, no dizziness, no weakness EXAM: General: Awake, alert and oriented. No acute distress. Skin: Skin in warm, dry and intact. Appropriate color for ethnicity. HEENT: The head is normocephalic and atraumatic. Conjunctivae are clear without exudates or hemorrhage. Sclera is non-icteric. EOM are intact. No signs of nystagmus. Eyelids are normal in appearance without swelling or lesions. Oral mucosa is pink and moist Neck: The neck is supple with normal range of motion. No JVD. Cardiac: Heart rate and rhythm are normal. No murmurs, gallops, or rubs are auscultated. Respiratory: No signs of respiratory distress. Lung sounds are clear in all lobes bilaterally without rales, rhonchi, or wheezes. Abdominal: Abdomen is soft, non-tender without distention. Bowel sounds are present and normoactive in all four quadrants. Extremities: Upper and lower extremities are atraumatic in appearance without deformity or edema. Neurological: The patient is awake, alert and oriented to person, place, and time with normal speech. Speech is clear. There is no facial asymmetry. Psychiatric: Appropriate mood and affect. Good judgement and insight Chief Complaint: High Blood Pressure Time Seen by MD: 01:37 Primary Care Provider: ENRIQUED Reviewed Notes: Nurses Notes Allergies: Coded Allergies: Erythromycin (Verified Allergy, Unknown, 01/07/25) Home Meds Active Scripts Sucralfate (CARAFATE SUSP) 1 Gm/10 Ml Ss, 10 ML PO QID for 30 Days, #1200 ML 3 Refills Prov:CLAUDIAANDRÉSI Kd DO 01/09/25 Nystatin (Mouth-Throat) (Mycostatin (Mouth-Throat)) 500,000 Units/5 Ml Ss, 5 ML MT TID for 10 Days, #150 ML switch and swallow Prov:EPHRAIM CASPER MD 01/08/25 Levofloxacin Hemihydrate (LEVOFLOXACIN) 250 Mg Tab, 250 MG PO DAILY for 7 Days, #7 TAB Prov:EPHRAIM CASPER MD 01/08/25 Pantoprazole Sodium Sesquihydr (Protonix) 40 Mg Tab, 40 MG PO BID, #180 TAB Prov:EPHRAIM CASPER MD 01/08/25 Sucralfate (CARAFATE SUSP) 1 Gm/10 Ml Ss, 1 GM PO QID@0600,1130,1700,2200 for 60 Days, #3600 ML Prov:EPHRAIM CASPER MD 01/08/25 Reported Medications Colchicine (Colchicine) 0.6 Mg Cap, 0.6 MG PO, CAP 01/10/25 Rosuvastatin Calcium (Crestor) 10 Mg Tab, 1 TAB PO DAILY, #30 TAB 5 Refills 01/10/25 Semaglutide (Ozempic) 4 Mg/3 Ml Inj, 4 MG SC, INJ 01/10/25 Semaglutide (Ozempic) 2 Mg/3 Ml Inj, 2 MG SC, INJ 01/10/25 Losartan Potassium (Losartan Potassium) 50 Mg Tab, 1 TAB PO DAILY, #30 TAB 5 Refills 01/10/25 Hydrochlorothiazide (Hydrochlorothiazide) 25 Mg Tab, 1 TAB PO DAILY, #30 TAB 5 Refills 01/10/25 Gabapentin (Gabapentin) 600 Mg Tab, 1 TAB PO TID, #90 TAB 3 Refills 01/10/25 Furosemide (Furosemide) 20 Mg Tab, 20 MG PO, TAB 01/10/25 Albuterol Sulfate (VENTOLIN MDI) 90 Mcg Ih, 90 MCG IN, INH 01/10/25 Promethazine Hcl (PHENERGAN INJECTION) 25 Mg/Ml Ij, 25 MG IM 06/04/13 Ipratropium [place] (Atrovent) 0.06 % Rhina, 0.06 % NA 06/04/13 Information Source: Patient Mode of Arrival: Ambulatory Past Medical History PAST MEDICAL HISTORY: HTN Surgical History: CABG LEDGER POSTER History: No Pertinent LEDGER POSTER History Family History Family History: Reviewed,noncontributory to illness, Unknown Social History Smoker: Unknown Alcohol: Unknown Drugs: Unknown Lives In: Home Was a procedure done? Was a procedure done?: No Differential Dx Considerations may include: Hypertensive urgency X-Ray, Labs, Meds, VS Vital Signs Date Time Temp Pulse Resp B/P (MAP) Pulse Ox O2 Delivery O2 Flow Rate FiO2 01/10/25 05:30 97.7 76 16 148/63 (91) 92 97.7 01/10/25 05:21 83 190/72 01/10/25 04:47 97.7 83 14 190/72 (111) 89 97.7 01/10/25 00:08 97.7 104 22 186/86 96 97.7 Lab Test 01/10/25 05:50 01/10/25 03:55 01/10/25 02:55 Range/Units Troponin I High Sensitivity 84 *H 67 *H 70 *H </=34 ng/L White Blood Count 11.9 #H 4.4-10.8 10^3/uL Red Blood Count 3.93 L 4.0-5.20 10^6/uL Hemoglobin 9.8 #L 12.2-16.2 g/dL Hematocrit 32.2 #L 36.0-46.0 % Mean Corpuscular Volume 82.0 80.0-100.0 fL Mean Corpuscular Hemoglobin 24.8 L 28.0-32.0 pg Mean Corpuscular Hemoglobin Concent 30.2 L 32.0-36.0 g/dL Red Cell Distribution Width 17.6 H 11.8-14.3 % Platelet Count 379 140-450 10^3/uL Mean Platelet Volume 8.1 6.9-10.8 fL Neutrophils (%) (Auto) 84.9 H 37.0-80.0 % Lymphocytes (%) (Auto) 6.3 L 10.0-50.0 % Monocytes (%) (Auto) 3.8 0.0-12.0 % Eosinophils (%) (Auto) 4.3 0.0-7.0 % Basophils (%) (Auto) 0.7 0.0-2.0 % Neutrophils # (Auto) 10.1 H 1.6-8.6 10 ^3/uL Lymphocytes # (Auto) 0.7 0.4-5.4 10 ^3/uL Monocytes # (Auto) 0.4 0-1.3 10 ^3/uL Eosinophils # (Auto) 0.5 0-0.8 10 ^3/uL Basophils # (Auto) 0.1 0-0.2 10 ^3/uL Nucleated Red Blood Cells 0.1 % Sodium Level 138 136-145 mmol/L Potassium Level 3.6 3.5-5.1 mmol/L Chloride Level 108 H 98-107 mmol/L Carbon Dioxide Level 24 20-31 mmol/L Anion Gap 6 5-15 Blood Urea Nitrogen 7 L 9-23 mg/dL Creatinine 0.70 0.550-1.02 mg/dL Glomerular Filtration Rate Calc 95 >90 mL/min BUN/Creatinine Ratio 10.0 10.0-20.0 Serum Glucose 104 74-106 mg/dL Hemoglobin A1c 4.6 <5.7 % A1C Calcium Level 9.4 8.7-10.4 mg/dL Magnesium Level 2.1 1.6-2.6 mg/dL Triglycerides Level 128 < 150 mg/dL Cholesterol Level 125 < 200 mg/dL LDL Cholesterol 69 < 100 mg/dL HDL Cholesterol 39 L 40-59 mg/dL Thyroid Stimulating Hormone (TSH) 1.61 0.55-4.78 uIU/mL Time of 1ST Reevaluation: 01:35 Reevaluation 1ST: Unchanged Patient Education/Counseling: Need For Follow Up Family Education/Counseling: No Family Present SEPSIS Sepsis Screen Date sepsis recognized/suspect: Jan 10, 2025 Time Sepsis recognized/suspect: 0011 Recent Procedure: No On Antibiotic Therapy: No Respiratory Rate >20: No Heart Rate >90: No Temp<36 C (96.8 F) or >38.3 C: No SBP <90 or MAP <65 mmHG: No New Acute Mental Status Change: No Is the patient on CPAP, BIPAP,: No Physician Orders Electrocardigram (01/10/25 02:53) Electrocardigram (01/10/25 03:53) Electrocardigram (01/10/25 05:53) Vital Signs Date Time Temp Pulse Resp B/P (MAP) Pulse Ox O2 Delivery O2 Flow Rate FiO2 01/10/25 05:30 97.7 76 16 148/63 (91) 92 97.7 01/10/25 05:21 83 190/72 01/10/25 04:47 97.7 83 14 190/72 (111) 89 97.7 01/10/25 00:08 97.7 104 22 186/86 96 97.7 Laboratory Tests Test 01/10/25 02:55 White Blood Count 11.9 10^3/uL (4.4-10.8) #H Departure 1 Departure Time of Disposition: 03:42 Impression: Primary Impression: Elevated troponin Additional Impression: Hypertensive urgency Disposition: ADMITTED INPATIENT Condition: Stable Comments 64-year-old female with hypertensive urgency, mildly elevated troponin. Case discussed with Dr. Renteria with request for admission. She is declining admission at this time. Recommendation is call back after blood pressure improved. Critical Care Note Critical Care Time?: No Stability Stability form required: No Heart Score Heart Score: Heart Score Response (Comments) Value History N/A 0 EKG N/A 0 Age N/A 0 Risk Factors N/A 0 Troponin N/A 0 Total 0 I personally scribed for NIKOLAI FARR MD ([email or web address]) on 01/10/25 at 01:37. Electronically submitted by Sudeep Melvin ([employer]). I personally scribed for NIKOLAI FARR MD ([email or web address]) on 01/10/25 at 01:41. Electronically submitted by Sudeep Melvin ([employer]). NIKOLAI FRAR MD Jan 10, 2025 01:37
--- NOTE | 2025-01-10 11:40 | DVHHP2 ---
Admitting Diagnosis: Elevated troponin History of Present Illness HPI 64-year-old female with HTN arrived to ER c/o high blood pressure. Patient was just discharged yesterday. She was diagnosed with PUD, acute blood loss anemia and esophageal candidal Infection, Patient states that last night she started having headache with tinnitus and checked her blood pressure - it was over 200 systolic. Her troponin was elevated during the previous admission and was between 44 and 50. Today it was up to 84. Home Meds Active Scripts Sucralfate (CARAFATE SUSP) 1 Gm/10 Ml Ss, 10 ML PO QID for 30 Days, #1200 ML 3 Refills Prov:LEELEEANDRÉS ENAMORADOI Kd DO 01/09/25 Nystatin (Mouth-Throat) (Mycostatin (Mouth-Throat)) 500,000 Units/5 Ml Ss, 5 ML MT TID for 10 Days, #150 ML switch and swallow Prov:EPHRAIM CASPER MD 01/08/25 Levofloxacin Hemihydrate (LEVOFLOXACIN) 250 Mg Tab, 250 MG PO DAILY for 7 Days, #7 TAB Prov:EPHRAIM CASPER MD 01/08/25 Pantoprazole Sodium Sesquihydr (Protonix) 40 Mg Tab, 40 MG PO BID, #180 TAB Prov:EPHRAIM CASPER MD 01/08/25 Sucralfate (CARAFATE SUSP) 1 Gm/10 Ml Ss, 1 GM PO QID@0600,1130,1700,2200 for 60 Days, #3600 ML Prov:EPHRAIM CASPER MD 01/08/25 Reported Medications Promethazine Hcl (PHENERGAN INJECTION) 25 Mg/Ml Ij, 25 MG IM 06/04/13 Ipratropium [place] (Atrovent) 0.06 % Rhina, 0.06 % NA 06/04/13 Atenolol (Atenolol) 25 Mg Tab, 25 MG PO, TAB 06/04/13 Past Medical History Cardiac: CAD, HTN GI: GI bleed, Peptic ulcer disease Patient Family History: Patient reports no known family medical history. H&P Exam Vital Signs Vital Signs Date Time Temp Pulse Resp B/P (MAP) Pulse Ox O2 Delivery O2 Flow Rate FiO2 01/10/25 05:30 97.7 76 16 148/63 (91) 92 97.7 General Appeara: Obese Head Exam: Normal inspection Neck Exam: Normal inspection Eye Exam: bilateral eye PERRL, bilateral eye EOMI Pulmonary/Respiratory: Lungs clear Cardiovascular/Chest: Tachycardia Abdominal Exam: Normal bowel sounds Neuro/Mental St: Alert, Oriented SEPSIS Sepsis Screen Date sepsis recognized/suspect: Jan 10, 2025 Time Sepsis recognized/suspect: 0011 Recent Procedure: No On Antibiotic Therapy: No Respiratory Rate >20: No Heart Rate >90: No Temp<36 C (96.8 F) or >38.3 C: No SBP <90 or MAP <65 mmHG: No New Acute Mental Status Change: No Is the patient on CPAP, BIPAP,: No Physician Orders Electrocardigram (01/10/25 02:53) Electrocardigram (01/10/25 03:53) Electrocardigram (01/10/25 05:53) Admit (01/10/25 07:04) * Cardiology Consult (01/10/25 07:04) Complete Blood Count (01/11/25 06:04) Comprehensive Metabolic Panel (01/11/25 06:04) Echo 2d Mode Cardiac Dop (01/10/25 07:04) Urinalysis (01/10/25 07:04) Prothrombin Time W/ Inr (01/10/25 07:04) Nitroglycerin Sublingual (Ntrostat Subli (01/10/25 07:15) Morphine Sulfate Injection (01/10/25 07:15) Stat Ekg For Chest Pain (01/10/25 07:04) Notify Md Of Changes From Base (01/10/25 07:04) Busgirl For 24 Hours (01/10/25 07:04) Emergency Dysrhythmia Protocol (01/10/25 07:04) Rhythm Strips Once Every Shift (01/10/25 07:04) Oxygen By Nasal Cannula (01/10/25 07:04) Sod Chl 0.45% (Sodium Chloride 0.45% Via (01/10/25 07:15) Metoprolol Tartrate Tablet (Lopressor Ta (01/10/25 10:00) Vital Signs Date Time Temp Pulse Resp B/P (MAP) Pulse Ox O2 Delivery O2 Flow Rate FiO2 01/10/25 05:30 97.7 76 16 148/63 (91) 92 97.7 01/10/25 05:21 83 190/72 01/10/25 04:47 97.7 83 14 190/72 (111) 89 97.7 01/10/25 00:08 97.7 104 22 186/86 96 97.7 Laboratory Tests Test 01/10/25 02:55 White Blood Count 11.9 10^3/uL (4.4-10.8) #H Medications Medications Dose Ordered Sig/Elsa Route Start Time Stop Time Status Last Admin Dose Admin Labetalol HCl 10 mg ONCE ONCE IV 01/10/25 05:00 01/10/25 05:01 DC 01/10/25 05:21 10 MG Labs/Xrays Labs Test 01/10/25 05:50 01/10/25 02:55 Range/Units Troponin I High Sensitivity 84 *H </=34 ng/L White Blood Count 11.9 #H 4.4-10.8 10^3/uL Red Blood Count 3.93 L 4.0-5.20 10^6/uL Hemoglobin 9.8 #L 12.2-16.2 g/dL Hematocrit 32.2 #L 36.0-46.0 % Mean Corpuscular Volume 82.0 80.0-100.0 fL Mean Corpuscular Hemoglobin 24.8 L 28.0-32.0 pg Mean Corpuscular Hemoglobin Concent 30.2 L 32.0-36.0 g/dL Red Cell Distribution Width 17.6 H 11.8-14.3 % Platelet Count 379 140-450 10^3/uL Mean Platelet Volume 8.1 6.9-10.8 fL Neutrophils (%) (Auto) 84.9 H 37.0-80.0 % Lymphocytes (%) (Auto) 6.3 L 10.0-50.0 % Monocytes (%) (Auto) 3.8 0.0-12.0 % Eosinophils (%) (Auto) 4.3 0.0-7.0 % Basophils (%) (Auto) 0.7 0.0-2.0 % Neutrophils # (Auto) 10.1 H 1.6-8.6 10 ^3/uL Lymphocytes # (Auto) 0.7 0.4-5.4 10 ^3/uL Monocytes # (Auto) 0.4 0-1.3 10 ^3/uL Eosinophils # (Auto) 0.5 0-0.8 10 ^3/uL Basophils # (Auto) 0.1 0-0.2 10 ^3/uL Nucleated Red Blood Cells 0.1 % Sodium Level 138 136-145 mmol/L Potassium Level 3.6 3.5-5.1 mmol/L Chloride Level 108 H 98-107 mmol/L Carbon Dioxide Level 24 20-31 mmol/L Anion Gap 6 5-15 Blood Urea Nitrogen 7 L 9-23 mg/dL Creatinine 0.70 0.550-1.02 mg/dL Glomerular Filtration Rate Calc 95 >90 mL/min BUN/Creatinine Ratio 10.0 10.0-20.0 Serum Glucose 104 74-106 mg/dL Calcium Level 9.4 8.7-10.4 mg/dL Magnesium Level 2.1 1.6-2.6 mg/dL Assessment/Plan Problem List: (1) Elevated troponin (2) Hypertensive urgency Plan Consult cardiology , ECHO, CXR Plan discussed with: Patient BRYCE FABIAN MD Jan 10, 2025 07:31
--- NOTE | 2025-01-10 11:44 | DVHINCON2 ---
Date Seen: Jan 10, 2025 Referring Physician MD Dexter Reason for Consultation Elevated troponin History of Present Illness This is a 64-year-old female patient who presents to the emergency room with chief complaint of elevated blood pressure. The patient reports she was just discharged from this facility yesterday on 01/09/2025 where she was diagnosed with mild candidal esophagitis and mild gastroduodenitis with erosions. She reports that she came back to the hospital due to uncontrolled blood pressures at home with systolic blood pressure reaching greater than 200s. She denies any cardiac symptoms. Initial twelve lead electrocardiogram reveals normal sinus rh ythm without any significant ST segment changes. Initial troponin level of 70ng/L with flat trend thereafter. Significant past medical history includes severe coronary artery disease status post CABG in January 2024, hypertension, dyslipidemia, asthma, right sciatica, tobacco use and obesity. The patient follows up with finish remover in the outpatient setting. Past Medical History Past medical history reviewed. No other significant than mentioned above. Past Surgical History CABG in January 2024 Family History: Patient reports no known family medical history. Family History Family history reviewed. Social History Patient has a 40 pack-year history; now smokes approximately one pack per week Denies any previous drug use Admits to occasional social alcohol use Allergies: Coded Allergies: Erythromycin (Verified Allergy, Unknown, 01/07/25) Home Meds Active Scripts Sucralfate (CARAFATE SUSP) 1 Gm/10 Ml Ss, 10 ML PO QID for 30 Days, #1200 ML 3 Refills Prov:INDIRA TAYLOR DO 01/09/25 Nystatin (Mouth-Throat) (Mycostatin (Mouth-Throat)) 500,000 Units/5 Ml Ss, 5 ML MT TID for 10 Days, #150 ML switch and swallow Prov:EPHRAIM CASPER MD 01/08/25 Levofloxacin Hemihydrate (LEVOFLOXACIN) 250 Mg Tab, 250 MG PO DAILY for 7 Days, #7 TAB Prov:EPHRAIM CASPER MD 01/08/25 Pantoprazole Sodium Sesquihydr (Protonix) 40 Mg Tab, 40 MG PO BID, #180 TAB Prov:EPHRAIM CASPER MD 01/08/25 Sucralfate (CARAFATE SUSP) 1 Gm/10 Ml Ss, 1 GM PO QID@0600,1130,1700,2200 for 60 Days, #3600 ML Prov:EPHRAIM CASPER MD 01/08/25 Reported Medications Levofloxacin Hemihydrate (LEVOFLOXACIN) 500 Mg Tab, 1 TAB PO DAILY, #7 TAB 01/10/25 Colchicine (Colchicine) 0.6 Mg Cap, 0.6 MG PO, CAP 01/10/25 Rosuvastatin Calcium (Crestor) 10 Mg Tab, 1 TAB PO DAILY, #30 TAB 5 Refills 01/10/25 Semaglutide (Ozempic) 4 Mg/3 Ml Inj, 4 MG SC, INJ 01/10/25 Semaglutide (Ozempic) 2 Mg/3 Ml Inj, 2 MG SC, INJ 01/10/25 Losartan Potassium (Losartan Potassium) 50 Mg Tab, 1 TAB PO DAILY, #30 TAB 5 Refills 01/10/25 Hydrochlorothiazide (Hydrochlorothiazide) 25 Mg Tab, 1 TAB PO DAILY, #30 TAB 5 Refills 01/10/25 Gabapentin (Gabapentin) 600 Mg Tab, 1 TAB PO TID, #90 TAB 3 Refills 01/10/25 Furosemide (Furosemide) 20 Mg Tab, 20 MG PO, TAB 01/10/25 Albuterol Sulfate (VENTOLIN MDI) 90 Mcg Ih, 90 MCG IN, INH 01/10/25 Promethazine Hcl (PHENERGAN INJECTION) 25 Mg/Ml Ij, 25 MG IM 06/04/13 Ipratropium [place] (Atrovent) 0.06 % Rhina, 0.06 % NA 06/04/13 Discontinued Reported Medications Atenolol (Atenolol) 25 Mg Tab, 25 MG PO, TAB 06/04/13 Home Meds Home medications reviewed. Current Medications Current Medications Medications (Trade) Dose Ordered Sig/Elsa Route PRN Reason Start Time Stop Time Status Last Admin Nitroglycerin (Ntrostat Sublingual) 0.4 mg Q5MINP PRN SL FOR CHEST PAIN 01/10/25 07:15 Morphine Sulfate 2 mg Q30M PRN IV FOR CHEST PAIN 01/10/25 07:15 Metoprolol Tartrate (Lopressor Tablet) 25 mg BID PO 01/10/25 10:00 Review of Systems Constitutional: No symptom reported Ears, Nose, & Throat: No symptom reported Eyes: No symptom reported Neurological: No symptoms reported Pulmonary/Respiratory: No symptoms reported Cardiovascular: No symptom reported Gastrointestinal: No symptom reported Genitourinary: No symptom reported Musculoskeletal: No symptom reported Skin: No symptom reported Psychiatric: No symptom reported Endocrine: No symptom reported Hematologic/Lymphatic: No symptom reported Vital Signs Vital Signs Date Time Temp Pulse Resp B/P (MAP) Pulse Ox O2 Delivery O2 Flow Rate FiO2 01/10/25 09:04 97.6 83 20 171/88 (115) 98 97.6 Physical Exam General Appearance: Cooperative. Morbidly obese Pulmonary/Respiratory: Clear, bilateral breaths sounds. Cardiovascular/Chest: Regular rate and rhythm. Peripheral Pulses: 2+ Radial (R). 2+ Radial (L). 2+ Pedal (R). 2+ Pedal (L) Abdominal Exam: Normal bowel sounds. Ankle Exam: Negative ankle edema Lower extremities: Negative lower extremity edema Neuro/Mental Status: A/OX4, coherent. Thoughts/Psych: Normal thought pattern. Appropriate mood and affect. Good judgment and insight. Appearance: No acute distress. Skin Exam: Normal inspection. Normal color. Warm and dry. Labs/Diagnostic Data Labs Test 01/10/25 10:02 01/10/25 05:50 01/10/25 02:55 Range/Units Troponin I High Sensitivity 84 *H </=34 ng/L White Blood Count 11.9 #H 4.4-10.8 10^3/uL Red Blood Count 3.93 L 4.0-5.20 10^6/uL Hemoglobin 9.8 #L 12.2-16.2 g/dL Hematocrit 32.2 #L 36.0-46.0 % Mean Corpuscular Volume 82.0 80.0-100.0 fL Mean Corpuscular Hemoglobin 24.8 L 28.0-32.0 pg Mean Corpuscular Hemoglobin Concent 30.2 L 32.0-36.0 g/dL Red Cell Distribution Width 17.6 H 11.8-14.3 % Platelet Count 379 140-450 10^3/uL Mean Platelet Volume 8.1 6.9-10.8 fL Neutrophils (%) (Auto) 84.9 H 37.0-80.0 % Lymphocytes (%) (Auto) 6.3 L 10.0-50.0 % Monocytes (%) (Auto) 3.8 0.0-12.0 % Eosinophils (%) (Auto) 4.3 0.0-7.0 % Basophils (%) (Auto) 0.7 0.0-2.0 % Neutrophils # (Auto) 10.1 H 1.6-8.6 10 ^3/uL Lymphocytes # (Auto) 0.7 0.4-5.4 10 ^3/uL Monocytes # (Auto) 0.4 0-1.3 10 ^3/uL Eosinophils # (Auto) 0.5 0-0.8 10 ^3/uL Basophils # (Auto) 0.1 0-0.2 10 ^3/uL Nucleated Red Blood Cells 0.1 % Sodium Level 138 136-145 mmol/L Potassium Level 3.6 3.5-5.1 mmol/L Chloride Level 108 H 98-107 mmol/L Carbon Dioxide Level 24 20-31 mmol/L Anion Gap 6 5-15 Blood Urea Nitrogen 7 L 9-23 mg/dL Creatinine 0.70 0.550-1.02 mg/dL Glomerular Filtration Rate Calc 95 >90 mL/min BUN/Creatinine Ratio 10.0 10.0-20.0 Serum Glucose 104 74-106 mg/dL Hemoglobin A1c 4.6 <5.7 % A1C Calcium Level 9.4 8.7-10.4 mg/dL Magnesium Level 2.1 1.6-2.6 mg/dL Triglycerides Level 128 < 150 mg/dL Cholesterol Level 125 < 200 mg/dL LDL Cholesterol 69 < 100 mg/dL HDL Cholesterol 39 L 40-59 mg/dL Thyroid Stimulating Hormone (TSH) 1.61 0.55-4.78 uIU/mL Assessment Hypertensive urgency NSTEMI, likely type 2 secondary to above Rule out structural heart disease Severe coronary artery disease status post CABG (on ASA) Dyslipidemia Acute on chronic anemia Asthma Tobacco use Morbid obesity Plan/Recommendation We will continue with the following plan/recommendations (Dr. Jaimes): * Transthoracic echocardiogram to evaluate cardiac function * Aggressive BP control as tolerated * Resume single antiplatelet therapy (ASA) if cleared by GI * Lipid-lowering agent * Close cardiac surveillance Thank you for allowing us to care for this patient. Please call with any questions or concerns. Critical care time spent: 44 minutes This medical document was created using an electronic medical record system with voice recognition software and computerized dictation system. Although this document has been carefully reviewed, there might still be some phonetic and typographical errors. Occasional wrong-word or ``sound-alike substitutions may have occurred due to the inherent limitations of voice recognition software. These areas are purely typographical due to imperfections of the software programs and do not reflect any compromise in the patient's medical care. Please read the chart carefully and recognize, using context, where these substitutions have occurred. Plan discussed with: Patient NYHA Physical activity limitations: NA Date of Service: Jan 10, 2025 Billing Provider: JOSE PEACE Cardiology Common Codes: 58589-PCTKSSJ INP/OBS CARE (High) Cardiology Consultation Codes: [id number] CONSULT <45MIN JOSE PEACE Jan 10, 2025 10:55
[2025-01-10] MEDS: HYDROcodone-ACET 5/325MG TAB PO PRN (12:23)
[2025-01-10 12:53] VITALS: BP 152/76; PULSE 84; RESP 18; TEMP 98.3; O2SAT 94
--- NOTE | 2025-01-10 13:20 | DVHINCON2 ---
Date Seen: Jan 10, 2025 Referring Physician MD Dexter Reason for Consultation Elevated troponin History of Present Illness This is a 64-year-old female with a past medical history of severe coronary artery disease status post CABG in January 2024, hypertension, dyslipidemia, asthma, right sciatica, tobacco use and obesity who presents to the emergency room with a complaint of elevated blood pressure. The patient reports she was just discharged from this facility yesterday on 01/09/2025 where she was diagnosed with mild candidal esophagitis and mild gastroduodenitis with erosions. She reports that she came back to the hospital due to uncontrolled blood pressures at home with systolic blood pressure reaching greater than 200s. She denies any cardiac symptoms. Initial twelve lead electrocardiogram reveals normal sinus rhythm without any significant ST segment changes. Initial troponin level of 70ng/L with flat trend thereafter. Chest x-ray showed NAD. The patient follows up with storyboard artist in the outpatient setting. Patient was admitted to the hospital. I am asked to consult on this patient. Past Medical History Past medical history reviewed. No other significant than mentioned above. Past Surgical History CABG in January 2024 Family History: Patient reports no known family medical history. Allergies: Coded Allergies: Erythromycin (Verified Allergy, Unknown, 01/07/25) Home Meds Active Scripts Sucralfate (CARAFATE SUSP) 1 Gm/10 Ml Ss, 10 ML PO QID for 30 Days, #1200 ML 3 Refills Prov:INDIRA TAYLOR DO 01/09/25 Nystatin (Mouth-Throat) (Mycostatin (Mouth-Throat)) 500,000 Units/5 Ml Ss, 5 ML MT TID for 10 Days, #150 ML switch and swallow Prov:EPHRAIM CASPER MD 01/08/25 Levofloxacin Hemihydrate (LEVOFLOXACIN) 250 Mg Tab, 250 MG PO DAILY for 7 Days, #7 TAB Prov:EPHRAIM CASPER MD 01/08/25 Pantoprazole Sodium Sesquihydr (Protonix) 40 Mg Tab, 40 MG PO BID, #180 TAB Prov:EPHRAIM CASPER MD 01/08/25 Sucralfate (CARAFATE SUSP) 1 Gm/10 Ml Ss, 1 GM PO QID@0600,1130,1700,2200 for 60 Days, #3600 ML Prov:EPHRAIM CASPER MD 01/08/25 Reported Medications Levofloxacin Hemihydrate (LEVOFLOXACIN) 500 Mg Tab, 1 TAB PO DAILY, #7 TAB 01/10/25 Colchicine (Colchicine) 0.6 Mg Cap, 0.6 MG PO, CAP 01/10/25 Rosuvastatin Calcium (Crestor) 10 Mg Tab, 1 TAB PO DAILY, #30 TAB 5 Refills 01/10/25 Semaglutide (Ozempic) 4 Mg/3 Ml Inj, 4 MG SC, INJ 01/10/25 Semaglutide (Ozempic) 2 Mg/3 Ml Inj, 2 MG SC, INJ 01/10/25 Losartan Potassium (Losartan Potassium) 50 Mg Tab, 1 TAB PO DAILY, #30 TAB 5 Refills 01/10/25 Hydrochlorothiazide (Hydrochlorothiazide) 25 Mg Tab, 1 TAB PO DAILY, #30 TAB 5 Refills 01/10/25 Gabapentin (Gabapentin) 600 Mg Tab, 1 TAB PO TID, #90 TAB 3 Refills 01/10/25 Furosemide (Furosemide) 20 Mg Tab, 20 MG PO, TAB 01/10/25 Albuterol Sulfate (VENTOLIN MDI) 90 Mcg Ih, 90 MCG IN, INH 01/10/25 Promethazine Hcl (PHENERGAN INJECTION) 25 Mg/Ml Ij, 25 MG IM 06/04/13 Ipratropium [place] (Atrovent) 0.06 % Rhina, 0.06 % NA 06/04/13 Discontinued Reported Medications Atenolol (Atenolol) 25 Mg Tab, 25 MG PO, TAB 06/04/13 Current Medications Current Medications Medications (Trade) Dose Ordered Sig/Elsa Route PRN Reason Start Time Stop Time Status Last Admin Nitroglycerin (Ntrostat Sublingual) 0.4 mg Q5MINP PRN SL FOR CHEST PAIN 01/10/25 07:15 Morphine Sulfate 2 mg Q30M PRN IV FOR CHEST PAIN 01/10/25 07:15 Metoprolol Tartrate (Lopressor Tablet) 25 mg BID PO 01/10/25 10:00 01/10/25 10:40 DC Losartan Potassium (Cozaar Tablet) 50 mg DAILY PO 01/11/25 10:00 Hydrochlorothiazide (hydroCHLOROthiazide TABLET) 25 mg DAILY PO 01/11/25 10:00 Pantoprazole Sodium (Protonix Tablet) 40 mg BID@0600,1700 PO 01/10/25 17:00 Acetaminophen/ Hydrocodone Bitart ([place] 5/325MG Tab) 1 tab Q6HPRN PRN PO MODERATE PAIN (4-6 PAIN SCALE) 01/10/25 11:45 Gabapentin (Neurontin Capsule) 600 mg TID PO 01/10/25 14:00 Review of Systems Constitutional: No symptom reported Ears, Nose, & Throat: No symptom reported Eyes: No symptom reported Neurological: No symptoms reported Pulmonary/Respiratory: No symptoms reported Cardiovascular: No symptom reported Gastrointestinal: No symptom reported Genitourinary: No symptom reported Musculoskeletal: No symptom reported Skin: No symptom reported Psychiatric: No symptom reported Endocrine: No symptom reported Hematologic/Lymphatic: No symptom reported Vital Signs Vital Signs Date Time Temp Pulse Resp B/P (MAP) Pulse Ox O2 Delivery O2 Flow Rate FiO2 01/10/25 11:32 171/89 01/10/25 09:16 Room Air* 0 21 01/10/25 09:04 97.6 83 20 98 97.6 Physical Exam GENERAL: Alert and oriented x 3. No acute distress. Morbidly obese. EYES: PERRL, EOMI. Anicteric. HENT: Moist mucous membranes. LUNGS: Clear to auscultation bilaterally. CARDIOVASCULAR: Regular rate and rhythm. ABDOMEN: Soft, nontender and nondistended. EXTREMITIES: No edema. NEUROLOGIC: No focal neurological deficits. SKIN: Warm, dry. Labs/Diagnostic Data Labs Test 01/10/25 10:02 01/10/25 05:50 01/10/25 02:55 Range/Units Prothrombin Time 10.6 9.3-11.8 sec Prothrombin Time INR 1.00 0.9-1.15 Troponin I High Sensitivity 84 *H </=34 ng/L White Blood Count 11.9 #H 4.4-10.8 10^3/uL Red Blood Count 3.93 L 4.0-5.20 10^6/uL Hemoglobin 9.8 #L 12.2-16.2 g/dL Hematocrit 32.2 #L 36.0-46.0 % Mean Corpuscular Volume 82.0 80.0-100.0 fL Mean Corpuscular Hemoglobin 24.8 L 28.0-32.0 pg Mean Corpuscular Hemoglobin Concent 30.2 L 32.0-36.0 g/dL Red Cell Distribution Width 17.6 H 11.8-14.3 % Platelet Count 379 140-450 10^3/uL Mean Platelet Volume 8.1 6.9-10.8 fL Neutrophils (%) (Auto) 84.9 H 37.0-80.0 % Lymphocytes (%) (Auto) 6.3 L 10.0-50.0 % Monocytes (%) (Auto) 3.8 0.0-12.0 % Eosinophils (%) (Auto) 4.3 0.0-7.0 % Basophils (%) (Auto) 0.7 0.0-2.0 % Neutrophils # (Auto) 10.1 H 1.6-8.6 10 ^3/uL Lymphocytes # (Auto) 0.7 0.4-5.4 10 ^3/uL Monocytes # (Auto) 0.4 0-1.3 10 ^3/uL Eosinophils # (Auto) 0.5 0-0.8 10 ^3/uL Basophils # (Auto) 0.1 0-0.2 10 ^3/uL Nucleated Red Blood Cells 0.1 % Sodium Level 138 136-145 mmol/L Potassium Level 3.6 3.5-5.1 mmol/L Chloride Level 108 H 98-107 mmol/L Carbon Dioxide Level 24 20-31 mmol/L Anion Gap 6 5-15 Blood Urea Nitrogen 7 L 9-23 mg/dL Creatinine 0.70 0.550-1.02 mg/dL Glomerular Filtration Rate Calc 95 >90 mL/min BUN/Creatinine Ratio 10.0 10.0-20.0 Serum Glucose 104 74-106 mg/dL Hemoglobin A1c 4.6 <5.7 % A1C Calcium Level 9.4 8.7-10.4 mg/dL Magnesium Level 2.1 1.6-2.6 mg/dL Triglycerides Level 128 < 150 mg/dL Cholesterol Level 125 < 200 mg/dL LDL Cholesterol 69 < 100 mg/dL HDL Cholesterol 39 L 40-59 mg/dL Thyroid Stimulating Hormone (TSH) 1.61 0.55-4.78 uIU/mL Assessment Hypertensive urgency. NSTEMI, likely type 2 secondary to above. Rule out structural heart disease. Severe coronary artery disease status post CABG (on ASA). Dyslipidemia. Acute on chronic anemia. Asthma. Tobacco use. Morbid obesity. Plan/Recommendation I agree with your ongoing assessment and care of plan. Patient has been seen by Aliza Lim NP on my behalf, her and I discussed the plan with the patient. Transthoracic echocardiogram to evaluate cardiac function Aggressive BP control as tolerated Resume single antiplatelet therapy (ASA) if cleared by GI Lipid-lowering agent Close cardiac surveillance Additional plan as per the hospital course. Plan discussed with: Patient NYHA 2 Physical activity limitations: NA Date of Service: Jan 10, 2025 Billing Provider: SURESH BRISCOE MD Cardiology Common Codes: 00851-FDONCJT INP/OBS CARE (High) Cardiology Consultation Codes: 86565-[id number] CONSULT <45MIN SURESH BRISCOE MD Jan 10, 2025 12:19
[2025-01-10] MEDS: GABAPENTIN 300 MG CAP PO SCH (14:51)
[2025-01-10 17:11] VITALS: BP 132/68; PULSE 82; RESP 18; TEMP 97.5; O2SAT 97
[2025-01-10] MEDS: PANTOPRAZOLE 40 MG TAB PO SCH (17:27)
[2025-01-10 20:00] VITALS: PULSE 95; RESP 16
[2025-01-10 21:00] VITALS: BP 119/61; PULSE 93; RESP 17; TEMP 98.6; O2SAT 97
[2025-01-11 01:00] VITALS: BP 137/64; PULSE 91; RESP 16; TEMP 98; O2SAT 97
--- NOTE | 2025-01-11 04:04 | DVHSR ---
APPROVED REPORT EXAM: Two-dimensional and M-mode echocardiogram with Doppler and color Doppler. Blood Pressure: 148/63 mmHg INDICATION Elevated Troponin RISK FACTORS Height: 5' 4", Weight: 219 DIMENSIONS LVDd4.4 (3.8-5.7cm)LA (2D)3.6 (1.9-4.0cm)Aortic Root3.2 (2.0-3.7cm) LVDs3.2 (2.5-4.0cm)LA (MM) (1.9-4.0cm)Aortic Cusp Exc1.5 (1.5-2.0cm) EF (%) 55.0 (55-70%)Rt. Atrium3.9 (1.9-4.0cm)Asc. Aorta cm IVSd1.1 (0.7-1.1cm)RV (D) (1.8-2.4cm) PWd1.2 (0.7-1.1cm) Mitral Valve MitralMitral Stenosis E wave1.30m/sMV Mean GR.mmHg A wave1.70m/sMV Peak GR.mmHg E/A ratio0.82D MVAcm2 Aortic Valve Aortic ValveAortic Stenosis V10.80m/Raul Mean GR.6mmHg V21.60m/Raul Peak GR.11mmHg LVOT Diameter2.0 (1.8-2.4cm)Doppler AVA1.57cm2 Tricuspid Valve TR Velocity2.30m/s [id number] Other Information Quality : Technically LimitedRhythm : Technically limited study due to body habitus. Conclusion NORMAL LV FUNCTION AND LV EF IS 65% MILD LVH AND MILD LV DIASTOLIC DYSFUNCTION HEAVILY CALCIFIED POSTERIOR MITRAL LEAFLET AORTIC SCLEROSIS MODERATELY DILATED RV NO EFFUSION
[2025-01-11 05:00] VITALS: BP 141/83; PULSE 95; RESP 16; TEMP 98; O2SAT 98
[2025-01-11 06:52] LABS: Nucleated Red Blood Cells % 0.0 %
[2025-01-11 06:55] LABS: Hematocrit 26.8 % (36.0-46.0); Hemoglobin 8.5 g/dL (12.2-16.2); Mean Corpuscular Hemoglobin 25.4 pg (28.0-32.0); Mean Corpuscular Volume 80.5 fL (80.0-100.0)
[2025-01-11 07:09] LABS: Alanine Aminotransferase 38 U/L (7-40); Alkaline Phosphatase 95 U/L (46-116); Anion Gap 9 (5-15); BUN/Creatinine Ratio 9.5 (10.0-20.0); Calcium 8.9 mg/dL (8.7-10.4); Carbon Dioxide 26 mmol/L (20-31); Chloride 106 mmol/L (98-107); Glucose 91 mg/dL (74-106); Potassium 3.6 mmol/L (3.5-5.1); Sodium 141 mmol/L (136-145); Total Protein 6.6 g/dL (5.7-8.2)
[2025-01-11 07:10] LABS: Albumin 3.9 g/dL (3.2-4.8); Bilirubin, Total 0.3 mg/dL (0.2-1.0)
[2025-01-11 07:11] LABS: Blood Urea Nitrogen 7 mg/dL (9-23)
[2025-01-11 08:00] VITALS: PULSE 100; RESP 16
[2025-01-11 09:00] VITALS: BP 135/72; PULSE 91; RESP 18; TEMP 98.5; O2SAT 94
[2025-01-11] MEDS: LOSARTAN POTASSIUM 50 MG TAB PO SCH (09:12)
[2025-01-11] MEDS: hydroCHLOROthiazide 25 MG TAB PO SCH (09:12)
[2025-01-11 10:37] VITALS: BP 135/72; PULSE 83; TEMP 36.9
--- NOTE | 2025-01-11 14:29 | DVHDS2 ---
Discharge Summary Date of Admission Jan 10, 2025 at 07:04 Date of Discharge: Jan 10, 2025 Labs/Diagnostic Data: Laboratory Results Test 01/11/25 06:02 01/10/25 10:02 01/10/25 05:50 01/10/25 02:55 White Blood Count 8.0 10^3/uL (4.4-10.8) Red Blood Count 3.32 10^6/uL (4.0-5.20) Hemoglobin 8.5 g/dL (12.2-16.2) Hematocrit 26.8 % (36.0-46.0) Mean Corpuscular Volume 80.5 fL (80.0-100.0) Mean Corpuscular Hemoglobin 25.4 pg (28.0-32.0) Mean Corpuscular Hemoglobin Concent 31.6 g/dL (32.0-36.0) Red Cell Distribution Width 17.7 % (11.8-14.3) Platelet Count 344 10^3/uL (140-450) Mean Platelet Volume 8.5 fL (6.9-10.8) Neutrophils (%) (Auto) 72.2 % (37.0-80.0) Lymphocytes (%) (Auto) 13.2 % (10.0-50.0) Monocytes (%) (Auto) 6.2 % (0.0-12.0) Eosinophils (%) (Auto) 7.8 % (0.0-7.0) Basophils (%) (Auto) 0.6 % (0.0-2.0) Neutrophils # (Auto) 5.8 10 ^3/uL (1.6-8.6) Lymphocytes # (Auto) 1.1 10 ^3/uL (0.4-5.4) Monocytes # (Auto) 0.5 10 ^3/uL (0-1.3) Eosinophils # (Auto) 0.6 10 ^3/uL (0-0.8) Basophils # (Auto) 0 10 ^3/uL (0-0.2) Nucleated Red Blood Cells 0.0 % Sodium Level 141 mmol/L (136-145) Potassium Level 3.6 mmol/L (3.5-5.1) Chloride Level 106 mmol/L (98-107) Carbon Dioxide Level 26 mmol/L (20-31) Anion Gap 9 (5-15) Blood Urea Nitrogen 7 mg/dL (9-23) Creatinine 0.74 mg/dL (0.550-1.02) Glomerular Filtration Rate Calc 89 mL/min (>90) BUN/Creatinine Ratio 9.5 (10.0-20.0) Serum Glucose 91 mg/dL (74-106) Calcium Level 8.9 mg/dL (8.7-10.4) Total Bilirubin 0.3 mg/dL (0.2-1.0) Aspartate Amino Transferase (AST) 25 U/L (13-40) Alanine Aminotransferase (ALT) 38 U/L (7-40) Alkaline Phosphatase 95 U/L (46-116) Total Protein 6.6 g/dL (5.7-8.2) Albumin 3.9 g/dL (3.2-4.8) Prothrombin Time 10.6 sec (9.3-11.8) Prothrombin Time INR 1.00 (0.9-1.15) Troponin I High Sensitivity 84 ng/L (</=34) Hemoglobin A1c 4.6 % A1C (<5.7) Magnesium Level 2.1 mg/dL (1.6-2.6) Triglycerides Level 128 mg/dL (< 150) Cholesterol Level 125 mg/dL (< 200) LDL Cholesterol 69 mg/dL (< 100) HDL Cholesterol 39 mg/dL (40-59) Thyroid Stimulating Hormone (TSH) 1.61 uIU/mL (0.55-4.78) Other Laboratory Tests 01/11/25 06:02 Brief Hx & Hospital Course: Patient is a 64-year-old female with past medical history of recent upper GI bleed secondary to duodenal ulcer who was recently discharged home and returned due to complaints of elevated blood pressure. On her previous admission, patient did not have elevated blood pressure. However she noted that this quinn at home. Patient stated that she consumed excessive salty foods. On arrival, patient's troponin was 67 and quinn to 84. Patient was admitted for cardiac evaluation. TTE was done which was within normal limits. She was cleared by cardiology for discharge. Blood pressure remained in the 130s to 140s on her BP medications. Patient was counseled on importance of diet adherence to low-salt diet. Patient is to continue her home medications as prescribed. PCP follow-up to be arranged. [facility] case management help arrange appointments. Condition at Discharge: Good Final Diagnosis/Problems List NSTEMI due to demand Secondary Diagnosis: Hypertension History of GIB Discharge Disposition: Home Discharge Instruct/Medications Diet: Cardiac 2g Na,low cholest Diet comment: Low salt diet, avoid soups, microwave, processed foods. Increase fresh foods. Activity: No Restrictions, As Tolerated Scheduled Gabapentin (Gabapentin), 1 TAB PO TID, (Reported) Hydrochlorothiazide (Hydrochlorothiazide), 1 TAB PO DAILY, (Reported) Levofloxacin Hemihydrate (Levofloxacin), 250 MG PO DAILY Losartan Potassium (Losartan Potassium), 1 TAB PO DAILY, (Reported) Nystatin (Mouth-Throat) (Mycostatin (Mouth-Throat)), 5 ML MT TID Pantoprazole Sodium Sesquihydr (Protonix), 40 MG PO BID Rosuvastatin Calcium (Crestor), 1 TAB PO DAILY, (Reported) Sucralfate (Carafate Susp), 1 GM PO QID@0600,1130,1700,2200 Sucralfate (Carafate Susp), 10 ML PO QID Miscellaneous Medications Albuterol Sulfate (Ventolin Mdi), 90 MCG IN, (Reported) Colchicine (Colchicine), 0.6 MG PO, (Reported) Furosemide (Furosemide), 20 MG PO, (Reported) Ipratropium [place] (Atrovent), 0.06 % NA, (Reported) Promethazine Hcl (Phenergan Injection), 25 MG IM, (Reported) Semaglutide (Ozempic), 2 MG SC, (Reported) Semaglutide (Ozempic), 4 MG SC, (Reported) Discontinued Medications Atenolol (Atenolol), 25 MG PO, (Reported) Levofloxacin Hemihydrate (Levofloxacin), 1 TAB PO DAILY, (Reported) Discharge Statement: "Patient was advised to return to the ER or call 911 if any headaches, dizziness, shortness of breath, chest pain, abdominal pain, bleeding, fevers, or worsening of medical condition. Patient was counseled about treatment plan, medications, possible side effects, patientverbalized understanding. All questions were answered to the best of my ability. This discharge took greater then 30 minutes in planning, reviewing documentation, counseling the patient, and discussing with other team members." ASSESSMENT ASSESSMENT Assessment NSTEMI due to demand INDIRA TAYLOR DO Jan 11, 2025 14:29
--- NOTE | 2025-01-11 23:01 | DVHPN2 ---
Progress Note - Dictate Date Seen: Jan 11, 2025 Medical Necessity Reason Pt with a Central, PICC or Fol: No Subjective Patient was seen and evaluated in follow up. No overnight events. Patient recommended for ICD battery exchange next week. Risks and benefits discussed with the patient. Patient denies any complaints today. Telemetry reviewed. vital signs Vital Sign Date Time Temp Pulse Resp B/P (MAP) Pulse Ox O2 Delivery O2 Flow Rate FiO2 01/11/25 10:37 36.9 83 01/11/25 09:12 135/72 01/11/25 09:00 18 94 01/11/25 08:00 Room Air* 0 21 Total Intake and Output 01/10/25 01/10/25 01/11/25 15:00 23:00 07:00 Intake Total 350 ml 600 ml 846 ml Output Total 3 ml Balance 350 ml 597 ml 846 ml objective GENERAL: Alert and oriented x 3. No acute distress. Morbidly obese. EYES: PERRL, EOMI. Anicteric. HENT: Moist mucous membranes. LUNGS: Clear to auscultation bilaterally. CARDIOVASCULAR: Regular rate and rhythm. ABDOMEN: Soft, nontender and nondistended. EXTREMITIES: No edema. NEUROLOGIC: No focal neurological deficits. SKIN: Warm, dry. laboratory and microbiology Laboratory Tests 01/11/25 06:02 Test 01/11/25 06:02 Range/Units Serum Glucose 91 74-106 mg/dL Problem List Hypertensive urgency. NSTEMI, likely type 2 secondary to above. Rule out structural heart disease. Severe coronary artery disease status post CABG (on ASA). Dyslipidemia. Acute on chronic anemia. Asthma. Tobacco use. Morbid obesity. Assessment/Plan Continued all current supportive medical care. Losartan. GI prophylactics. Morphine for pain management. Additional plan as per the hospital course. Plan discussed with: Patient SURESH BRISCOE MD Jan 11, 2025 15:30
== END 2025-01-11 11:00 | disposition home or self-care (01) | DRG 281 ==
LOC: ER 00:07 → OVERFLOW 07:04 → TELE-WESTW 09:04
PROVIDERS: ADMIT Student in an Organized Health Care Education/Training Program; ATTEND Student in an Organized Health Care Education/Training Program
DX: I16.0 Hypertensive urgency (principal); Z68.45 Body mass index [BMI] 70 or greater, adult; I21.A1 Myocardial infarction type 2; J45.909 Unspecified asthma, uncomplicated; I25.10 Atherosclerotic heart disease of native coronary artery without angina pectoris; E78.5 Hyperlipidemia, unspecified; E66.01 Morbid (severe) obesity due to excess calories; H93.13 Tinnitus, bilateral; Z79.899 Other long term (current) drug therapy; Z95.1 Presence of aortocoronary bypass graft; Z87.11 Personal history of peptic ulcer disease
CPT/HCPCS: 36415; 71046; 80048; 80053; 80061; 83036; 83735; 84443; 84484; 85025; 85610; 93005; 93306; 96374; G0378